=== PATIENT | male | born 1945 ===

== ENCOUNTER 2023-01-23 20:38 | Inpatient (IN) | payer MEDICARE, SELFPAY ==
--- NOTE | ~2023-01-23 | CT_ITS ---
EXAMINATION: CT HEAD WITHOUT CONTRAST CLINICAL INFORMATION: Encephalopathy COMPARISON: None available. TECHNIQUE: Contiguous axial imaging was performed from the skull base to vertex without intravenous administration of contrast. This CT examination was performed using dose optimization techniques as appropriate, variously including the following: *Automated exposure control *Adjustment of mA and/or kV according to patient size (this includes techniques or standardized protocols for targeted exams where dose is matched to indication/reason for exam; i.e. extremities or head) *Use of iterative reconstruction technique DLP: 607 mGy-cm FINDINGS: There is no acute intra-axial, extra-axial bleed, masses or midline shift.. There is no acute infarction in evolution. There is no edema. The lateral ventricles are symmetrical in size but moderately enlarged. There is mild periventricular hypodensity in both cerebral hemispheres suggestive of chronic small vessel ischemic changes. Bone windows reveal no calvarial abnormality. There is no scalp soft tissue abnormality. Paranasal sinuses and mastoid air cells are well-aerated with a small polyp or retention cyst right maxillary sinus. CT/CT head/brain wo IV con IMPRESSION: No acute intracranial process seen.
--- NOTE | ~2023-01-23 | CT_ITS ---
EXAMINATION: CT CHEST WITHOUT CONTRAST CLINICAL INFORMATION: Aspiration pneumonia COMPARISON: None available. TECHNIQUE: Multidetector volumetric CT imaging of the chest was done. Axial MIP volume rendering provided. Sagittal and coronal reformatted images were obtained. This CT examination was performed using dose optimization techniques as appropriate, variously including the following: *Automated exposure control *Adjustment of mA and/or kV according to patient size (this includes techniques or standardized protocols for targeted exams where dose is matched to indication/reason for exam; i.e. extremities or head) *Use of iterative reconstruction technique DLP: 295 mGy-cm FINDINGS: Breathing motion does limit study. LUNGS: Marked paraseptal and centrilobular emphysematous changes of lungs. Associated bronchial wall thickening without bronchiectasis of the central bronchi. No focal dense consolidation. Lung nodules: No suspicious lung nodule. MEDIASTINUM: No mediastinal mass or significant lymphadenopathy. Heart size is normal. No pericardial effusion. Vascular cast stations of aorta and great vessels without aneurysm. CORONARY ARTERY CALCIFICATION: Moderate volume of coronary calcification. PLEURA: There is no pleural effusion. No pleural mass or thickening. AXILLA: No lymphadenopathy. UPPER ABDOMEN: No abnormality visualized portions of liver and spleen or pancreas. Small cortical cyst upper pole right kidney. No follow-up imaging is recommended for simple renal cyst.. Degenerative glands are normal. OSSEOUS STRUCTURES: Multilevel degenerative spondylosis spine. CT/CT chest wo IV con IMPRESSION: 1. Marked emphysematous changes of lungs. 2. No acute abnormality of chest. Fleischner guidelines were followed.
[2023-01-23 18:00] VITALS: BP 127/60; PULSE 71; RESP 17; TEMP 36; O2SAT 100
[2023-01-23 21:51] VITALS: BMI 22.1
[2023-01-23] MEDS: risperiDONE 0.5 MG TABLET 1.5 MG PO (22:37)
[2023-01-23] MEDS: traZODone HCL 50 MG TABLET PO (22:37)
[2023-01-23] MEDS: Enoxaparin Sodium 40 MG/0.4 ML SYRINGE SUBCUT (22:38)
[2023-01-23] MEDS: OLANZapine 2.5 MG TABLET PO (23:16)
[2023-01-24] MEDS: traZODone HCL 50 MG TABLET PO ×2 (00:42→20:35)
[2023-01-24] MEDS: hydrOXYzine HCL 25 MG TABLET PO ×2 (00:42→20:35)
--- NOTE | 2023-01-24 02:53 | PC.ADMIT ---
Admitted these 77 yrs. old male pt. per stretcher at 21:15h accompanied by ambulance staff w/ the Sec 12-B from [facility] presenting due to a history of dementia w/ more recent onset of behavioral disturbances. He presented w/ increased aggression from [facility]. He has a history of poor impulse control. According to the Nurse to Nurse report pt had soft wrist restraints in [facility]. Upon admission, Pt is alert and oriented to self only, very confused and disorganized and no insights to situation. Patient put to bed comfortably, skin check done w/ multiple bruises on upper extremity and slightly reddened buttocks.No edema noted. No c/o SOB. Abdomen soft and non tender w/ +bowel sounds in 4 quadrants. Pt has no c/o pain. Unable to assess fully during the admission process, Pt is not answering questions and unable to understand due to confusion. Pt. has hx of Acute Urinary retention, Bradycardia, CAD, HTN, Hypoglycemia, BPH. Pt became agitated and aggressive during incontinent care. Pt. given snacks scheduled HS meds and also given PRN Trazodone, Zyprexa and Atarax w/ effect. Pt unable to sign the release of information due to confusion. Marcia Martin notified of admission w/ orders made. Pt. placed on q 5 mins checks per hospital policy. We'll continue to monitor patient.
[2023-01-24 08:05] VITALS: BP 166/83; PULSE 83; RESP 16; TEMP 36.2; O2SAT 94
[2023-01-24 08:34] LABS: Estimated Average Glucose 100 mg/dL; Hemoglobin A1c % 5.1 % (<6.0)
[2023-01-24 08:49] LABS: Cholesterol 190 mg/dL (<200); HDL Cholesterol 42 mg/dL (>40); LDL Cholesterol Calculated 129 mg/dL (<100); Magnesium 1.9 mg/dL (1.6-2.6); Triglycerides 96 mg/dL (<150)
[2023-01-24 09:05] LABS: Free T4 (Free Thyroxine) 1.12 ng/dL (0.71-1.85); Thyroid Stimulating Hormone 1.52 uIU/mL (0.32-4.0)
[2023-01-24] MEDS: Aspirin 81 MG TAB.CHEW PO (09:16)
[2023-01-24] MEDS: risperiDONE 1 MG TABLET PO (09:16)
[2023-01-24] MEDS: Divalproex Sodium 250 MG TABLET.DR PO ×2 (09:16→20:34)
[2023-01-24] MEDS: Tamsulosin HCL 0.4 MG CAPSULE PO (09:16)
[2023-01-24] MEDS: traZODone HCL 25 MG HALFTAB PO (09:16)
[2023-01-24 09:29] LABS: Folate 5.6 ng/mL (> or = 4.0); Vitamin B12 611 pg/mL (200-900)
--- NOTE | 2023-01-24 11:11 | HO.PM.IMCN ---
History of Present Illness Data of Consult Service Date: 01/24/23 Primary Care Provider: Unknown Physician HPI Reason for consult: Admission H&P Pt is a 77-year-old male with a PMH significant for?HTN, CAD, BPH, urinary retention, and dementia with behavioral disturbances who is admitted to [facility] from assisted living facility for aggressive behavior. Patient diagnosed with dementia in 2014 which has advanced significantly in the last year, leading to patient's admission to [facility] unit earlier this year due to increasing wandering behavior. Medical consult for admission H&P. Patient is somnolent and not arousable at time of interview. Review of records shows that patient has been recently aggressive towards staff at his facility and in the hospital. Patient apparently becomes agitated when approached from behind or to the side. Patient had thrown a chair at staff at his previous facility. Here, patient had a large bowel movement and threw feces at the staff. Labs reviewed from ED admission, largely unremarkable. Review of Systems Review of Systems: Unable to obtain due to patient's mentation PMFSH Social History Household Members: None Housing: Detention Do you presently have visiting nurse or other home services: No Unable to assess alcohol history related to: Unable to respond Patient Tobacco Use Status: Former Tobacco user Tobacco use type: Cigarette Smoked in Last 30 Days: No Use of substances other than those prescribed or required for medical reasons: No Currently Displaying Signs/Symptoms of Drug Intoxication Withdrawal: No Advance Directives: No Advance Directives Information Provided: No Recently lost weight without trying: Unsure Nutrition Risks: No Nutritional Risk Poor oral hygiene: No service: Yes Meds Allergies Allergy/AdvReac Type Severity Reaction Status Date / Time [id number] Reductase Allergy Unknown Unknown Verified 01/23/23 16:57 Inhibitor Active Medications: Current Medications Acetaminophen (Acetaminophen 325 Mg Tablet) 650 mg PO Q6H PRN PRN Reason: Headache/Pain Mild Scale (1-3) Al Hydroxide/Mg Hydroxide (Magnesium Hydrox/Alum Hydrox 30 Ml Oral.Susp) 30 ml PO Q6H PRN PRN Reason: Heartburn/Nausea Aspirin (Aspirin 81 Mg Tab.Chew) 81 mg PO DAILY [facility] Last Admin: 01/24/23 09:16 Dose: 81 mg Clonazepam (Clonazepam 0.125 Mg Tab.Rapdis) 0.25 mg PO BEDTIME [facility] Divalproex Sodium (Divalproex Sodium 250 Mg Tablet.Dr) 250 mg PO BID [facility] Last Admin: 01/24/23 09:16 Dose: 250 mg Enoxaparin Sodium (Enoxaparin Sodium 40 Mg/0.4 Ml Syringe) 40 mg SUBCUT Q24H [facility] Last Admin: 01/23/23 22:38 Dose: 40 mg Hydroxyzine HCl (Hydroxyzine Hcl 25 Mg Tablet) 25 mg PO Q6H PRN PRN Reason: Anxiety Last Admin: 01/24/23 00:42 Dose: 25 mg Magnesium Hydroxide (Milk Of Magnesia 30 Ml Oral.Susp) 30 ml PO DAILY PRN PRN Reason: Constipation Melatonin (Melatonin 3 Mg Tablet) 6 mg PO BEDTIME [facility] Olanzapine (Olanzapine 2.5 Mg Tablet) 2.5 mg PO Q6H PRN PRN Reason: agitation Last Admin: 01/23/23 23:16 Dose: 2.5 mg Risperidone (Risperidone 1 Mg Tablet) 1 mg PO DAILY [facility] Last Admin: 01/24/23 09:16 Dose: 1 mg Risperidone (Risperidone 0.5 Mg Tablet) 1.5 mg PO BEDTIME [facility] Last Admin: 01/23/23 22:37 Dose: 1.5 mg Tamsulosin HCl (Tamsulosin Hcl 0.4 Mg Capsule) 0.4 mg PO DAILY [facility] Last Admin: 01/24/23 09:16 Dose: 0.4 mg Trazodone HCl (Trazodone Hcl 50 Mg Tablet) 50 mg PO BEDTIME MRX1 PRN PRN Reason: Insomnia Last Admin: 01/24/23 00:42 Dose: 50 mg Trazodone HCl (Trazodone Hcl 25 Mg Halftab) 25 mg PO DAILY [facility] Last Admin: 01/24/23 09:16 Dose: 25 mg Trazodone HCl (Trazodone Hcl 50 Mg Tablet) 50 mg PO BEDTIME [facility] Last Admin: 01/23/23 22:37 Dose: 50 mg Home Medications Medication Instructions Recorded Confirmed Last Taken Type acetaminophen 325 mg tablet 650 mg PO Q6H PRN Pain, Mild 01/24/23 01/24/23 01/22/23 13:28 History aspirin 81 mg tablet 81 mg PO DAILY 01/24/23 01/24/23 01/23/23 12:16 History clonazepam 0.5 mg tablet 0.25 mg PO BEDTIME 01/24/23 01/24/23 01/22/23 20:13 History divalproex 250 mg tablet,delayed 250 mg PO BID 01/24/23 01/24/23 01/23/23 12:18 History release enoxaparin 40 mg/0.4 mL 40 mg subcut DAILY 01/24/23 01/24/23 01/23/23 12:18 History subcutaneous syringe melatonin 3 mg tablet 6 mg PO BEDTIME 01/24/23 01/24/23 01/22/23 20:15 History olanzapine 2.5 mg tablet 2.5 mg PO DAILY PRN Agitation 01/24/23 01/24/23 01/20/23 23:16 History risperidone 1 mg tablet 1 mg PO QAM 01/24/23 01/24/23 01/23/23 12:18 History risperidone 1 mg tablet 1.5 mg PO BEDTIME 01/24/23 01/24/23 01/22/23 20:14 History tamsulosin 0.4 mg capsule 0.4 mg PO DAILY 01/24/23 01/24/23 01/23/23 12:16 History trazodone 50 mg tablet 25 mg PO QAM 01/24/23 01/24/23 01/23/23 12:18 History trazodone 50 mg tablet 50 mg PO BEDTIME 01/24/23 01/24/23 01/22/23 20:16 History Physical Exam Vital Signs and Narrative: Vital Signs: Last Vital Signs Temp 97.2 F 01/24/23 08:05 Pulse 83 01/24/23 08:05 Resp 16 01/24/23 08:05 BP 166/83 H 01/24/23 08:05 Pulse Ox 94 01/24/23 08:05 O2 Del Method Room Air 01/24/23 08:05 BMI result Body Mass Index 22.1 General: Pt sleeping comfortably, not arousable, no acute distress Resp: CTA bilaterally CVS: S1, S2, RRR GI: +BS, NT, no distention Skin: No rash Neuro: Cranial nerves II-XII grossly intact bilaterally. Motor grossly intact bilaterally Extremities: No edema Results Labs Labs: Laboratory Results - last 24 hr 01/24/23 01/24/23 01/24/23 08:07 08:07 08:07 Estimat Average Glucose 100 Hemoglobin A1c % 5.1 Magnesium 1.9 Triglycerides 96 Cholesterol 190 LDL Cholesterol, Calc 129 H HDL Cholesterol 42 Vitamin B12 611 Folate 5.6 TSH 1.52 Free T4 1.12 Assessment and Plan (1) Routine history and physical examination of adult: Status: Acute Plan Pt is a 77-year-old male with a PMH significant for?HTN, CAD, BPH, urinary retention, and dementia with behavioral disturbances who is admitted to [facility] from assisted living facility for aggressive behavior. Patient diagnosed with dementia in 2014 which has advanced significantly in the last year, leading to patient's admission to [facility] earlier this year due to increasing wandering behavior. Medical consult for admission H&P. Patient is somnolent and not arousable at time of interview. Mood disorder Plan as per psychiatry CAD Continue aspirin BPH Continue tansulosin Hx of urinary retention Has had intermittent Keith catheters, urology consults\ Pt incontinent, has urinated since admission per nursing Bladder scan as necessary Monitor bladder habits Thank you for allowing us to participate in the care of this patient. Signing off at this time. Please let us know if there are any acute complaints or questions. Time Spent With Patient Time: Total time managing care of this patient today ____ minutes.
--- NOTE | 2023-01-24 12:33 | HO.PSYADMNOT ---
HPI Date of Service: 01/24/23 Chief Complaint: Dementia w behavioral disturbances Sources of Information: patient interviewed, chart reviewed and crisis/core team assessment reviewed HPI Subjective Notes: Alva Warning, Conditional Voluntary and Section 12B Narrative: The patient is a 77-year-old male, for the last 53 years, father of 1 adult son, resident of memory care unit, referred to [facility] for exacerbation of disorganized behavior and agitation. The patient carries a diagnosis of dementia since 2014 and recently he had being transferred to the memory unit due to the progression of his dementia. The patient had been admitted before to the hospital due to similar presentations but he was returned back after improving his behavior in the unit. The present episode started a few weeks ago with worsening of his memory, increased agitation and disorganized behavior. He was rushed to the emergency room and admitted into the hospital since the patient had a UTI and needed to have a Keith catheter. The infection was resolved and he was able to urinate by himself without the need of the Keith. Even though, he was assessed by crisis and since he remains disorganized was transferring to this facility for psychiatric stabilization. Apparently, the patient had been several times on restraints. On admission, the patient is a very poor historian, he was unable to provide details of the previous admission. He realized that he is in a hospital, he adamantly denies auditory or visual hallucinations and he is able to contract for safety. Even though, it is unlikely that he understood 100% Alva warning. We will try to gather collateral information from her who is the primary director day care center. Past Psychiatric History: No prior psychiatric history as per 's report. 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 He had been for the last 55 years with his and he has a son. He had been resident of a memory care unit for the last months. Substance History: Denies Trauma History: Denies Diagnostics Vital Signs (24Hr): Vital Signs - 24 hr 01/23/23 18:00 01/24/23 08:05 Temperature 96.8 F 97.2 F Pulse Rate 71 83 Respiratory Rate 17 16 Blood Pressure 127/60 166/83 H Pulse Oximetry 100 94 Oxygen Delivery Method Room Air Room Air BMI result Body Mass Index 22.1 Labs Labs: Laboratory Results - last 48 hr 01/24/23 01/24/23 01/24/23 08:07 08:07 08:07 Estimat Average Glucose 100 Hemoglobin A1c % 5.1 Magnesium 1.9 Triglycerides 96 Cholesterol 190 LDL Cholesterol, Calc 129 H HDL Cholesterol 42 Vitamin B12 611 Folate 5.6 TSH 1.52 Free T4 1.12 Meds/Allergies Meds Home Medications Medication Instructions Recorded Confirmed Type acetaminophen 325 mg tablet 650 mg PO Q6H PRN Pain, Mild 01/24/23 01/24/23 History aspirin 81 mg tablet 81 mg PO DAILY 01/24/23 01/24/23 History clonazepam 0.5 mg tablet 0.25 mg PO BEDTIME 01/24/23 01/24/23 History divalproex 250 mg tablet,delayed 250 mg PO BID 01/24/23 01/24/23 History release enoxaparin 40 mg/0.4 mL 40 mg subcut DAILY 01/24/23 01/24/23 History subcutaneous syringe melatonin 3 mg tablet 6 mg PO BEDTIME 01/24/23 01/24/23 History olanzapine 2.5 mg tablet 2.5 mg PO DAILY PRN Agitation 01/24/23 01/24/23 History risperidone 1 mg tablet 1 mg PO QAM 01/24/23 01/24/23 History risperidone 1 mg tablet 1.5 mg PO BEDTIME 01/24/23 01/24/23 History tamsulosin 0.4 mg capsule 0.4 mg PO DAILY 01/24/23 01/24/23 History trazodone 50 mg tablet 25 mg PO QAM 01/24/23 01/24/23 History trazodone 50 mg tablet 50 mg PO BEDTIME 01/24/23 01/24/23 History Allergies Allergies Allergy/AdvReac Type Severity Reaction Status Date / Time [id number] Reductase Allergy Unknown Unknown Verified 01/23/23 16:57 Inhibitor Mental Status Exam Mental Status Exam Patient Appearance: Appropriate and Unkempt Patient Orientation: Person Level of Consciousness: Awake Patient Behavior: Guarded and Passive Mood Description: Suspicious and Withdrawn Affect Description: Constricted Patient Cognition Impaired: Yes Ability to Follow Directions: Good Speech Pattern: Clear and Difficulty Finding Words Hallucinations: None Delusions: Not Present Thought Process: Distracted and Evasive Thought Content: positive for [place] and positive for Poverty of Content Judgement: Fair Assessment & Plan Assessment & Plan (1) Dementia: Status: Acute Code(s): F03.90 - Unspecified dementia, unspecified severity, without behavioral disturbance, psychotic disturbance, mood disturbance, and anxiety (2) Delirium: Status: Acute Code(s): R41.0 - Disorientation, unspecified Plan The patient is an elderly male, , with a past history of dementia who was referred from another hospital for exacerbation of behavioral disturbances in the context of a UTI. The patient has been diagnosed with dementia for several years and his condition has worsen it. At this moment, the patient is a very poor historian unable to provide a coherent history. Plan 1. Gather collateral information. We will try to contact his . 2. Continue with psychotropics. 3. Continue with medical workout. 4. Follow-up with results. 4. 5 minutes checks for the next 24 hours. Patient educated on: diagnosis and therapeutic strategies Informed Consent: does not understand Reason for continued inpatient stay Substantial Risk for: harm to others, inability to function, rapid decompensation and med/psych decompensation Statement Statement: I have reviewed the history and physical and performed a pertinent examination on my patient. No changes have occurred unless specified. If the History and Physical was not performed prior to admission, the Hospitalist's service will be consulted for completing the admission physical. Time Spent With Patient Time: Total time managing care of this patient today _45___ minutes.
[2023-01-24 18:00] VITALS: BP 118/68; PULSE 72; RESP 16; TEMP 36.1; O2SAT 97
[2023-01-24] MEDS: risperiDONE 0.5 MG TABLET 1.5 MG PO (20:34)
[2023-01-24] MEDS: Melatonin 3 MG TABLET 6 MG PO (20:34)
[2023-01-24] MEDS: Acetaminophen 325 MG TABLET 650 MG PO (20:35)
[2023-01-24] MEDS: Enoxaparin Sodium 40 MG/0.4 ML SYRINGE SUBCUT (23:09)
[2023-01-25 07:00] VITALS: BMI 21.1
[2023-01-25 08:00] VITALS: BP 148/63; PULSE 68; RESP 18; TEMP 36.6; O2SAT 97
[2023-01-25] MEDS: Divalproex Sodium 250 MG TABLET.DR PO (08:28)
[2023-01-25] MEDS: Tamsulosin HCL 0.4 MG CAPSULE PO (08:28)
[2023-01-25] MEDS: traZODone HCL 25 MG HALFTAB PO (08:28)
[2023-01-25] MEDS: risperiDONE 1 MG TABLET PO (08:28)
[2023-01-25] MEDS: Aspirin 81 MG TAB.CHEW PO (08:28)
--- NOTE | 2023-01-25 11:02 | P.PNPSI_ITS ---
Subjective Subjective Date of Service: 01/25/23 Reason For Visit: Dementia w behavioral disturbances Subjective Notes: Section 12B Interim History: The nursing staff reported the patient had been sleeping yesterday nearly all day long. He had been very confused and irritable with care. He receive Atarax last night at helping very well. He slept 7 nights overnight. On interview the patient was sleepy, very difficult to wake up and he looks very confused. Mental Status Exam Mental Status Exam Patient Appearance: Appropriate Patient Orientation: Person and Situation Level of Consciousness: Awake and Appropriate Patient Behavior: Guarded and Passive Mood Description: Withdrawn Affect Description: Blunted Patient Cognition Impaired: Yes Ability to Follow Directions: Fair Speech Pattern: Clear Hallucinations: None Delusions: Not Present Thought Process: Illogical and Evasive Thought Content: positive for [place] and positive for Poverty of Content Judgement: Poor Diagnostics Vital Signs (24Hr): Vital Signs - 24 hr 01/24/23 18:00 01/25/23 08:00 Temperature 96.9 F 97.8 F Pulse Rate 72 68 Respiratory Rate 16 18 Blood Pressure 118/68 148/63 H Pulse Oximetry 97 97 Oxygen Delivery Method Room Air Room Air BMI result Body Mass Index 22.1 Labs Labs: Laboratory Results - last 48 hr 01/24/23 01/24/23 01/24/23 08:07 08:07 08:07 Estimat Average Glucose 100 Hemoglobin A1c % 5.1 Magnesium 1.9 Triglycerides 96 Cholesterol 190 LDL Cholesterol, Calc 129 H HDL Cholesterol 42 Vitamin B12 611 Folate 5.6 TSH 1.52 Free T4 1.12 Medications Medications Current Medications Acetaminophen (Acetaminophen 325 Mg Tablet) 650 mg PO Q6H PRN PRN Reason: Headache/Pain Mild Scale (1-3) Last Admin: 01/24/23 20:35 Dose: 650 mg Al Hydroxide/Mg Hydroxide (Magnesium Hydrox/Alum Hydrox 30 Ml Oral.Susp) 30 ml PO Q6H PRN PRN Reason: Heartburn/Nausea Aspirin (Aspirin 81 Mg Tab.Chew) 81 mg PO DAILY [facility] Last Admin: 01/25/23 08:28 Dose: 81 mg Clonazepam (Clonazepam 0.125 Mg Tab.Rapdis) 0.25 mg PO BEDTIME [facility] Last Admin: 01/24/23 20:34 Dose: 0.25 mg Divalproex Sodium (Divalproex Sodium Sprinkles 125 Mg ) 250 mg PO BID [facility] Last Admin: 01/25/23 08:58 Dose: Not Given Enoxaparin Sodium (Enoxaparin Sodium 40 Mg/0.4 Ml Syringe) 40 mg SUBCUT Q24H [facility] Last Admin: 01/24/23 23:09 Dose: 40 mg Hydroxyzine HCl (Hydroxyzine Hcl 25 Mg Tablet) 25 mg PO Q6H PRN PRN Reason: Anxiety Last Admin: 01/24/23 20:35 Dose: 25 mg Magnesium Hydroxide (Milk Of Magnesia 30 Ml Oral.Susp) 30 ml PO DAILY PRN PRN Reason: Constipation Melatonin (Melatonin 3 Mg Tablet) 6 mg PO BEDTIME [facility] Last Admin: 01/24/23 20:34 Dose: 6 mg Olanzapine (Olanzapine 2.5 Mg Tablet) 2.5 mg PO Q6H PRN PRN Reason: agitation Last Admin: 01/23/23 23:16 Dose: 2.5 mg Risperidone (Risperidone 1 Mg Tablet) 1 mg PO DAILY [facility] Last Admin: 01/25/23 08:28 Dose: 1 mg Risperidone (Risperidone 0.5 Mg Tablet) 1.5 mg PO BEDTIME [facility] Last Admin: 01/24/23 20:34 Dose: 1.5 mg Tamsulosin HCl (Tamsulosin Hcl 0.4 Mg Capsule) 0.4 mg PO DAILY [facility] Last Admin: 01/25/23 08:28 Dose: 0.4 mg Trazodone HCl (Trazodone Hcl 50 Mg Tablet) 50 mg PO BEDTIME MRX1 PRN PRN Reason: Insomnia Last Admin: 01/24/23 00:42 Dose: 50 mg Trazodone HCl (Trazodone Hcl 25 Mg Halftab) 25 mg PO DAILY [facility] Last Admin: 01/25/23 08:28 Dose: 25 mg Trazodone HCl (Trazodone Hcl 50 Mg Tablet) 50 mg PO BEDTIME [facility] Last Admin: 01/24/23 20:35 Dose: 50 mg Allergies Allergies Allergy/AdvReac Type Severity Reaction Status Date / Time [id number]-[id number]-[id number] Reductase Allergy Unknown Unknown Verified 01/23/23 16:57 Inhibitor Assessment & Plan Assessment & Plan (1) Dementia: Status: Acute Code(s): F03.90 - Unspecified dementia, unspecified severity, without behavioral disturbance, psychotic disturbance, mood disturbance, and anxiety (2) Delirium: Status: Acute Code(s): R41.0 - Disorientation, unspecified Plan The patient is an elderly male, , with a past history of dementia who was referred from another hospital for exacerbation of behavioral disturbances in the context of a UTI. The patient has been diagnosed with dementia for several years and his condition has worsen it. At this moment, the patient is a very poor historian unable to provide a coherent history. Plan 1. Gather collateral information. We will try to contact his . 2. Continue with psychotropics. 3. Continue with medical workout. 4. Follow-up with results. 4. 5 minutes checks for the next 24 hours. Reason for continued inpatient stay Substantial Risk for: inability to function, rapid decompensation and med/psych decompensation Time Spent With Patient Time: Total time managing care of this patient today __20__ minutes.
[2023-01-25 20:00] VITALS: BP 152/87; PULSE 85; RESP 20; TEMP 36.4
[2023-01-25] MEDS: Melatonin 3 MG TABLET 6 MG PO (20:21)
[2023-01-25] MEDS: Divalproex Sodium Sprinkles 125 MG CAP.DR.SPR 250 MG PO (20:22)
[2023-01-25] MEDS: risperiDONE 0.5 MG TABLET 1.5 MG PO (20:24)
[2023-01-25] MEDS: traZODone HCL 50 MG TABLET PO ×2 (20:24→23:41)
[2023-01-25] MEDS: Enoxaparin Sodium 40 MG/0.4 ML SYRINGE SUBCUT (21:11)
[2023-01-25] MEDS: OLANZapine 2.5 MG TABLET PO (23:35)
[2023-01-26 08:05] VITALS: BP 140/69; PULSE 62; RESP 16; TEMP 36.4; O2SAT 96
[2023-01-26] MEDS: Aspirin 81 MG TAB.CHEW PO (08:26)
[2023-01-26] MEDS: Tamsulosin HCL 0.4 MG CAPSULE PO (08:26)
[2023-01-26] MEDS: Divalproex Sodium Sprinkles 125 MG CAP.DR.SPR 250 MG PO ×2 (08:26→22:43)
[2023-01-26] MEDS: traZODone HCL 25 MG HALFTAB PO (08:26)
[2023-01-26] MEDS: risperiDONE 1 MG TABLET PO (09:31)
[2023-01-26] MEDS: hydrOXYzine HCL 25 MG TABLET PO ×2 (10:25→22:43)
[2023-01-26] MEDS: OLANZapine 2.5 MG TABLET PO (10:25)
--- NOTE | 2023-01-26 11:34 | HO.PSYCHPN ---
Subjective Subjective Date of Service: 01/26/23 Reason For Visit: Dementia w behavioral disturbances Subjective Notes: Conditional Voluntary (By healthcare proxy) Interim History: The nursing staff reported that yesterday the patient was most of the time sleeping during the day and today in the morning he was combative with care her to 1 of the staff members. The director social reported that the was contacted for healthcare proxy, she wants to move him out of her current facility and going to the facility that she is on. The patient had been very confused and demented and most likely he is on a end-stage dementia. On interview, the patient was confused, sleepy, unable to fully assess his mental status due to over-sedation. Mental Status Exam Mental Status Exam Patient Appearance: Appropriate Patient Orientation: Person Level of Consciousness: Disoriented and Lethargic Patient Behavior: Guarded Mood Description: Withdrawn Affect Description: Blunted Patient Cognition Impaired: Yes Ability to Follow Directions: Fair Speech Pattern: Impoverished Hallucinations: None Delusions: Not Present Thought Process: Illogical, Distracted and Slowed Thinking Thought Content: positive for Shelby and positive for Poverty of Content Judgement: Poor Diagnostics Vital Signs (24Hr): Vital Signs - 24 hr 01/25/23 20:00 01/26/23 08:05 Temperature 97.5 F 97.6 F Pulse Rate 85 62 Respiratory Rate 20 16 Blood Pressure 152/87 H 140/69 H Pulse Oximetry 96 Oxygen Delivery Method Room Air BMI result Body Mass Index 21.1 Medications Medications Current Medications Acetaminophen (Acetaminophen 325 Mg Tablet) 650 mg PO Q6H PRN PRN Reason: Headache/Pain Mild Scale (1-3) Last Admin: 01/24/23 20:35 Dose: 650 mg Al Hydroxide/Mg Hydroxide (Magnesium Hydrox/Alum Hydrox 30 Ml Oral.Susp) 30 ml PO Q6H PRN PRN Reason: Heartburn/Nausea Aspirin (Aspirin 81 Mg Tab.Chew) 81 mg PO DAILY [facility] Last Admin: 01/26/23 08:26 Dose: 81 mg Clonazepam (Clonazepam 0.125 Mg Tab.Rapdis) 0.25 mg PO BEDTIME [facility] Last Admin: 01/25/23 20:25 Dose: 0.25 mg Divalproex Sodium (Divalproex Sodium Sprinkles 125 Mg ) 250 mg PO BID [facility] Last Admin: 01/26/23 08:26 Dose: 250 mg Enoxaparin Sodium (Enoxaparin Sodium 40 Mg/0.4 Ml Syringe) 40 mg SUBCUT Q24H [facility] Last Admin: 01/25/23 21:11 Dose: 40 mg Hydroxyzine HCl (Hydroxyzine Hcl 25 Mg Tablet) 25 mg PO Q6H PRN PRN Reason: Anxiety Last Admin: 01/26/23 10:25 Dose: 25 mg Magnesium Hydroxide (Milk Of Magnesia 30 Ml Oral.Susp) 30 ml PO DAILY PRN PRN Reason: Constipation Melatonin (Melatonin 3 Mg Tablet) 6 mg PO BEDTIME [facility] Last Admin: 01/25/23 20:21 Dose: 6 mg Olanzapine (Olanzapine 2.5 Mg Tablet) 2.5 mg PO Q6H PRN PRN Reason: agitation Last Admin: 01/26/23 10:25 Dose: 2.5 mg Risperidone (Risperidone 1 Mg Tablet) 1 mg PO DAILY [facility] Last Admin: 01/26/23 09:31 Dose: 1 mg Risperidone (Risperidone 0.5 Mg Tablet) 1.5 mg PO BEDTIME [facility] Last Admin: 01/25/23 20:24 Dose: 1.5 mg Tamsulosin HCl (Tamsulosin Hcl 0.4 Mg Capsule) 0.4 mg PO DAILY [facility] Last Admin: 01/26/23 08:26 Dose: 0.4 mg Trazodone HCl (Trazodone Hcl 50 Mg Tablet) 50 mg PO BEDTIME MRX1 PRN PRN Reason: Insomnia Last Admin: 01/25/23 23:41 Dose: 50 mg Trazodone HCl (Trazodone Hcl 25 Mg Halftab) 25 mg PO DAILY [facility] Last Admin: 01/26/23 08:26 Dose: 25 mg Trazodone HCl (Trazodone Hcl 50 Mg Tablet) 50 mg PO BEDTIME [facility] Last Admin: 01/25/23 20:24 Dose: 50 mg Allergies Allergies Allergy/AdvReac Type Severity Reaction Status Date / Time Rmategr-WVQ-LtC Reductase Allergy Unknown Unknown Verified 01/23/23 16:57 Inhibitor Assessment & Plan Assessment & Plan (1) Dementia: Status: Acute Code(s): F03.90 - Unspecified dementia, unspecified severity, without behavioral disturbance, psychotic disturbance, mood disturbance, and anxiety (2) Delirium: Status: Acute Code(s): R41.0 - Disorientation, unspecified Plan The patient is an elderly male, , with a past history of dementia who was referred from another hospital for exacerbation of behavioral disturbances in the context of a UTI. The patient has been diagnosed with dementia for several years and his condition has worsen it. At this moment, the patient is a very poor historian unable to provide a coherent history. Plan 1. Gather collateral information. We will try to contact his . 2. Continue with psychotropics. 3. Continue with medical workout. 4. Follow-up with results. 4. 5 minutes checks for the next 24 hours. Reason for continued inpatient stay Substantial Risk for: inability to function, rapid decompensation and med/psych decompensation Time Spent With Patient Time: Total time managing care of this patient today __20__ minutes.
[2023-01-26] MEDS: OLANZapine 5 MG TABLET PO (14:03)
[2023-01-26] MEDS: OLANZapine ODT 10 MG TAB.RAPDIS TRANSLINGU (16:29)
--- NOTE | 2023-01-26 17:09 | PC.NURSE ---
Pt agitated/combative through out shift, several attempts to redirect with no effect, po Zyprexa 10 mg given with good effect.
[2023-01-26 18:00] VITALS: BP 154/78; PULSE 81; RESP 16; TEMP 36; O2SAT 96
[2023-01-26] MEDS: risperiDONE 0.5 MG TABLET 1.5 MG PO (22:42)
[2023-01-26] MEDS: Melatonin 3 MG TABLET 6 MG PO (22:42)
[2023-01-26] MEDS: Enoxaparin Sodium 40 MG/0.4 ML SYRINGE SUBCUT (22:43)
[2023-01-26] MEDS: traZODone HCL 50 MG TABLET PO (22:43)
[2023-01-27 08:00] VITALS: BP 157/72; PULSE 78; RESP 18; TEMP 36.2; O2SAT 97
[2023-01-27] MEDS: Aspirin 81 MG TAB.CHEW PO (11:19)
[2023-01-27] MEDS: traZODone HCL 25 MG HALFTAB PO (11:19)
[2023-01-27] MEDS: risperiDONE 1 MG TABLET PO (11:19)
[2023-01-27] MEDS: Tamsulosin HCL 0.4 MG CAPSULE PO (11:20)
[2023-01-27] MEDS: Divalproex Sodium Sprinkles 125 MG CAP.DR.SPR 250 MG PO ×2 (11:20→19:44)
--- NOTE | 2023-01-27 17:46 | HO.PSYCHPN ---
Subjective Subjective Date of Service: 01/27/23 Reason For Visit: Dementia w behavioral disturbances Interim History: met with patient. Discussed with Nursing. Agitation last night requiring olanzapine. Has been sleeping most of the morning in context same. Need lots of assistance and cognition consistent with establish dementia. Did attempt to wake patient, but sleeping soundly and did not engage. Medication Compliance: Yes Side effects from medications: No Attending Groups: No Review of Systems Acute medical concerns: No Review of Systems Review of Systems Yes Unobtainable due to mental status Mental Status Exam Mental Status Exam Narrative: Sleeping soundly. Did not engage when attempted to wake. Diagnostics Vital Signs (24Hr): Vital Signs - 24 hr 01/26/23 18:00 01/27/23 08:00 Temperature 96.8 F 97.1 F Pulse Rate 81 78 Respiratory Rate 16 18 Blood Pressure 154/78 H 157/72 H Pulse Oximetry 96 97 Oxygen Delivery Method Room Air Room Air BMI result Body Mass Index 21.1 Medications Medications Current Medications Acetaminophen (Acetaminophen 325 Mg Tablet) 650 mg PO Q6H PRN PRN Reason: Headache/Pain Mild Scale (1-3) Last Admin: 01/24/23 20:35 Dose: 650 mg Al Hydroxide/Mg Hydroxide (Magnesium Hydrox/Alum Hydrox 30 Ml Oral.Susp) 30 ml PO Q6H PRN PRN Reason: Heartburn/Nausea Aspirin (Aspirin 81 Mg Tab.Chew) 81 mg PO DAILY [facility] Last Admin: 01/27/23 11:19 Dose: 81 mg Clonazepam (Clonazepam 0.125 Mg Tab.Rapdis) 0.25 mg PO BEDTIME [facility] Last Admin: 01/26/23 22:43 Dose: 0.25 mg Divalproex Sodium (Divalproex Sodium Sprinkles 125 Mg Nathan.) 250 mg PO BID [facility] Last Admin: 01/27/23 11:20 Dose: 250 mg Enoxaparin Sodium (Enoxaparin Sodium 40 Mg/0.4 Ml Syringe) 40 mg SUBCUT Q24H [facility] Last Admin: 01/26/23 22:43 Dose: 40 mg Hydroxyzine HCl (Hydroxyzine Hcl 25 Mg Tablet) 25 mg PO Q6H PRN PRN Reason: Anxiety Last Admin: 01/26/23 22:43 Dose: 25 mg Magnesium Hydroxide (Milk Of Magnesia 30 Ml Oral.Susp) 30 ml PO DAILY PRN PRN Reason: Constipation Melatonin (Melatonin 3 Mg Tablet) 6 mg PO BEDTIME [facility] Last Admin: 01/26/23 22:42 Dose: 6 mg Olanzapine (Olanzapine 2.5 Mg Tablet) 2.5 mg PO Q6H PRN PRN Reason: agitation Last Admin: 01/26/23 10:25 Dose: 2.5 mg Risperidone (Risperidone 1 Mg Tablet) 1 mg PO DAILY [facility] Last Admin: 01/27/23 11:19 Dose: 1 mg Risperidone (Risperidone 0.5 Mg Tablet) 1.5 mg PO BEDTIME [facility] Last Admin: 01/26/23 22:42 Dose: 1.5 mg Tamsulosin HCl (Tamsulosin Hcl 0.4 Mg Capsule) 0.4 mg PO DAILY [facility] Last Admin: 01/27/23 11:20 Dose: 0.4 mg Trazodone HCl (Trazodone Hcl 50 Mg Tablet) 50 mg PO BEDTIME MRX1 PRN PRN Reason: Insomnia Last Admin: 01/25/23 23:41 Dose: 50 mg Trazodone HCl (Trazodone Hcl 25 Mg Halftab) 25 mg PO DAILY [facility] Last Admin: 01/27/23 11:19 Dose: 25 mg Trazodone HCl (Trazodone Hcl 50 Mg Tablet) 50 mg PO BEDTIME [facility] Last Admin: 01/26/23 22:43 Dose: 50 mg Allergies Allergies Allergy/AdvReac Type Severity Reaction Status Date / Time [id number]-[id number]-NdT Reductase Allergy Unknown Unknown Verified 01/23/23 16:57 Inhibitor Assessment & Plan Assessment & Plan (1) Dementia: Status: Acute Code(s): F03.90 - Unspecified dementia, unspecified severity, without behavioral disturbance, psychotic disturbance, mood disturbance, and anxiety (2) Delirium: Status: Acute Code(s): R41.0 - Disorientation, unspecified Plan The patient is an elderly male, , with a past history of dementia who was referred from another hospital for exacerbation of behavioral disturbances in the context of a UTI. The patient has been diagnosed with dementia for several years and his condition has worsen it. At this moment, the patient is a very poor historian unable to provide a coherent history. Plan 1. Gather collateral information. We will try to contact his . 2. Continue with psychotropics. 3. Continue with medical workout. 4. Follow-up with results. 4. 5 minutes checks for the next 24 hours. 01/27/2023: No changes Reason for continued inpatient stay Substantial Risk for: inability to function Time Spent With Patient Time: Total time managing care of this patient today ____ minutes.
[2023-01-27] MEDS: OLANZapine 2.5 MG TABLET PO (17:50)
[2023-01-27 18:00] VITALS: BP 138/67; PULSE 73; RESP 20; TEMP 37.1; O2SAT 98
[2023-01-27] MEDS: hydrOXYzine HCL 25 MG TABLET PO (18:59)
[2023-01-27] MEDS: Enoxaparin Sodium 40 MG/0.4 ML SYRINGE SUBCUT (19:42)
[2023-01-27] MEDS: risperiDONE 0.5 MG TABLET 1.5 MG PO (19:43)
[2023-01-27] MEDS: Melatonin 3 MG TABLET 6 MG PO (19:43)
[2023-01-27] MEDS: traZODone HCL 50 MG TABLET PO ×2 (19:44→23:34)
[2023-01-27] MEDS: Acetaminophen 325 MG TABLET 650 MG PO (23:34)
[2023-01-28 07:45] VITALS: BP 139/74; PULSE 82; RESP 18; TEMP 36.6; O2SAT 96
[2023-01-28] MEDS: Aspirin 81 MG TAB.CHEW PO (07:48)
[2023-01-28] MEDS: traZODone HCL 25 MG HALFTAB PO (07:49)
[2023-01-28] MEDS: risperiDONE 1 MG TABLET PO (07:50)
[2023-01-28] MEDS: Divalproex Sodium Sprinkles 125 MG CAP.DR.SPR 250 MG PO ×2 (07:50→19:58)
[2023-01-28] MEDS: Tamsulosin HCL 0.4 MG CAPSULE PO (07:55)
[2023-01-28] MEDS: hydrOXYzine HCL 25 MG TABLET PO ×2 (09:38→15:16)
[2023-01-28] MEDS: OLANZapine 2.5 MG TABLET PO ×2 (09:38→15:17)
--- NOTE | 2023-01-28 12:16 | HO.PSYCHPN ---
Subjective Subjective Date of Service: 01/28/23 Reason For Visit: Dementia w behavioral disturbances Interim History: Met with patient. Discussed with Nursing. Chart reviewed. And alert today. It in Zeinab chair in day area. Pleasant with song writer. Cognition consistent with established dementia, for example stated he was out shopping for the day. Has been irritable with staff at times. Does well with p.r.n. medications when agitated. Medication Compliance: Yes Side effects from medications: No Attending Groups: No Review of Systems Acute medical concerns: No Review of Systems Review of Systems nothing acute Mental Status Exam Mental Status Exam Narrative: in Zeinab chair. Hospital clothing. Self-care fair. Alert. Not oriented. Pleasant. No evidence of depression SI or HI. No overt psychosis noted. Cognition consistent with establish dementia. Diagnostics Vital Signs (24Hr): Vital Signs - 24 hr 01/27/23 18:00 01/28/23 07:45 Temperature 98.7 F 97.9 F Pulse Rate 73 82 Respiratory Rate 20 18 Blood Pressure 138/67 139/74 Pulse Oximetry 98 96 Oxygen Delivery Method Room Air Room Air BMI result Body Mass Index 21.1 Medications Medications Current Medications Acetaminophen (Acetaminophen 325 Mg Tablet) 650 mg PO Q6H PRN PRN Reason: Headache/Pain Mild Scale (1-3) Last Admin: 01/27/23 23:34 Dose: 650 mg Al Hydroxide/Mg Hydroxide (Magnesium Hydrox/Alum Hydrox 30 Ml Oral.Susp) 30 ml PO Q6H PRN PRN Reason: Heartburn/Nausea Aspirin (Aspirin 81 Mg Tab.Chew) 81 mg PO DAILY [facility] Last Admin: 01/28/23 07:48 Dose: 81 mg Clonazepam (Clonazepam 0.125 Mg Tab.Rapdis) 0.25 mg PO BEDTIME [facility] Last Admin: 01/27/23 19:43 Dose: 0.25 mg Divalproex Sodium (Divalproex Sodium Sprinkles 125 Mg ) 250 mg PO BID [facility] Last Admin: 01/28/23 07:50 Dose: 250 mg Enoxaparin Sodium (Enoxaparin Sodium 40 Mg/0.4 Ml Syringe) 40 mg SUBCUT Q24H [facility] Last Admin: 01/27/23 19:42 Dose: 40 mg Hydroxyzine HCl (Hydroxyzine Hcl 25 Mg Tablet) 25 mg PO Q6H PRN PRN Reason: Anxiety Last Admin: 01/28/23 09:38 Dose: 25 mg Magnesium Hydroxide (Milk Of Magnesia 30 Ml Oral.Susp) 30 ml PO DAILY PRN PRN Reason: Constipation Melatonin (Melatonin 3 Mg Tablet) 6 mg PO BEDTIME [facility] Last Admin: 01/27/23 19:43 Dose: 6 mg Olanzapine (Olanzapine 2.5 Mg Tablet) 2.5 mg PO Q6H PRN PRN Reason: agitation Last Admin: 01/28/23 09:38 Dose: 2.5 mg Risperidone (Risperidone 1 Mg Tablet) 1 mg PO DAILY [facility] Last Admin: 01/28/23 07:50 Dose: 1 mg Risperidone (Risperidone 0.5 Mg Tablet) 1.5 mg PO BEDTIME [facility] Last Admin: 01/27/23 19:43 Dose: 1.5 mg Tamsulosin HCl (Tamsulosin Hcl 0.4 Mg Capsule) 0.4 mg PO DAILY [facility] Last Admin: 01/28/23 07:55 Dose: 0.4 mg Trazodone HCl (Trazodone Hcl 50 Mg Tablet) 50 mg PO BEDTIME MRX1 PRN PRN Reason: Insomnia Last Admin: 01/27/23 23:34 Dose: 50 mg Trazodone HCl (Trazodone Hcl 25 Mg Halftab) 25 mg PO DAILY [facility] Last Admin: 01/28/23 07:49 Dose: 25 mg Trazodone HCl (Trazodone Hcl 50 Mg Tablet) 50 mg PO BEDTIME [facility] Last Admin: 01/27/23 19:44 Dose: 50 mg Allergies Allergies Allergy/AdvReac Type Severity Reaction Status Date / Time Aleiytq-WTN-HjI Reductase Allergy Unknown Unknown Verified 01/23/23 16:57 Inhibitor Assessment & Plan Assessment & Plan (1) Dementia: Status: Acute Code(s): F03.90 - Unspecified dementia, unspecified severity, without behavioral disturbance, psychotic disturbance, mood disturbance, and anxiety (2) Delirium: Status: Acute Code(s): R41.0 - Disorientation, unspecified Plan The patient is an elderly male, , with a past history of dementia who was referred from another hospital for exacerbation of behavioral disturbances in the context of a UTI. The patient has been diagnosed with dementia for several years and his condition has worsen it. At this moment, the patient is a very poor historian unable to provide a coherent history. Plan 1. Gather collateral information. We will try to contact his . 2. Continue with psychotropics. 3. Continue with medical workout. 4. Follow-up with results. 4. 5 minutes checks for the next 24 hours. 01/28/2023: No changes Reason for continued inpatient stay Substantial Risk for: inability to function Time Spent With Patient Time: Total time managing care of this patient today ____ minutes.
[2023-01-28 18:00] VITALS: BP 128/60; PULSE 71; RESP 16; TEMP 36.4; O2SAT 95
[2023-01-28] MEDS: traZODone HCL 50 MG TABLET PO (19:58)
[2023-01-28] MEDS: Melatonin 3 MG TABLET 6 MG PO (19:59)
[2023-01-28] MEDS: risperiDONE 0.5 MG TABLET 1.5 MG PO (19:59)
[2023-01-28] MEDS: OLANZapine 5 MG TABLET PO (19:59)
[2023-01-28] MEDS: Enoxaparin Sodium 40 MG/0.4 ML SYRINGE SUBCUT (21:09)
[2023-01-29 06:32] VITALS: PULSE 84; RESP 20; TEMP 36.1; O2SAT 94
--- NOTE | 2023-01-29 06:43 | PC.NURSE ---
somnolent/sedated. pt is well under the influences of medications administered earlier in the night for agitation/combativeness. pt moans to noxious stimulation. pt has developed upper resp congestion which briefly clears with coughing. hob has been elevated 30-35 degrees. sao2 checked 94%. no obvious air hunger. the possibility of aspiration exists. pt will need to be kept npo and have speech evaluation. he is afebrile now. apical hr 84 bpm.
[2023-01-29 06:56] VITALS: BP 129/68
[2023-01-29 13:19] LABS: Basophils Percent Auto 0.1 % (0-2); Eosinophils Percent Auto 0.1 % (0-4); Hematocrit 46.6 % (42.0-52.0); Imm Gran Abs Auto 0.06 X10*3/uL (0.00-0.03); Imm Gran Pct Auto 0.4 % (0.0-0.4); Lymphocytes Absolute Auto 0.4 X10*3/uL (1.2-4.9); MANUAL DIFF FLAG SCAN; Mean Corpuscular HGB Conc 34.3 g/dl (31.0-36.0); Mean Corpuscular Hemoglobin 30.9 pg (27.0-33.0); Mean Platelet Volume 9.4 fL (9.4-12.4); Monocytes Percent Auto 14.2 % (2-11); Neutrophils Absolute Auto 11.2 x10*3/uL (2.0-8.3); Neutrophils Percent Auto 82.2 % (45-73); Platelet Count 166 X10*3/uL (160-400); Red Blood Count 5.18 X10*6/uL (4.60-5.80); Red Cell Distribution Width 13.4 % (11.0-16.0); SCAN SMEAR FLAG 1; White Blood Count 13.7 X10*3/uL (4.8-10.8)
[2023-01-29 13:28] LABS: Alanine Aminotransferase 16 U/L (0-40); Albumin Level 4.2 g/dL (3.5-5.0); Alkaline Phosphatase 71 U/L (39-117); Anion Gap 12 (12-20); Aspartate Amino Transferase 17 U/L (5-37); Bilirubin Total 0.9 mg/dL (0.0-1.0); Blood Urea Nitrogen 23 mg/dL (9-16); Calcium 10.5 mg/dL (8.4-10.2); Carbon Dioxide 28 mmol/L (22-29); Chloride 108 mmol/L (96-108); Creatinine Clr Calc Pharmacy 58.4; Estimated Glomerular Filt Rate > 60; Glucose Random 145 mg/dL (60-115); Potassium 4.9 mmol/L (3.3-5.1); Sodium 143 mmol/L (135-145); Total Protein 7.5 g/dL (6.5-8.0)
--- NOTE | 2023-01-29 13:36 | P.PNPSI_ITS ---
Subjective Subjective Reason For Visit: Dementia w behavioral disturbances Diagnostics Vital Signs (24Hr): Vital Signs - 24 hr 01/28/23 18:00 01/29/23 06:32 01/29/23 06:56 Temperature 97.5 F 96.9 F Pulse Rate 71 84 Respiratory Rate 16 20 Blood Pressure 128/60 129/68 Pulse Oximetry 95 94 Oxygen Delivery Method Room Air Room Air BMI result Body Mass Index 21.1 Labs 01/29/23 13:09 01/29/23 13:09 Labs: Laboratory Results - last 48 hr 01/29/23 13:09 Sodium 143 Potassium 4.9 Chloride 108 Carbon Dioxide 28 Anion Gap 12 BUN 23 H Creatinine 0.90 Estim Creat Clear Calc 58.4 Estimated GFR > 60 Random Glucose 145 H Calcium 10.5 H Total Bilirubin 0.9 AST 17 ALT 16 Alkaline Phosphatase 71 Total Protein 7.5 Albumin 4.2 Medications Medications Current Medications Acetaminophen (Acetaminophen 325 Mg Tablet) 650 mg PO Q6H PRN PRN Reason: Headache/Pain Mild Scale (1-3) Last Admin: 01/27/23 23:34 Dose: 650 mg Al Hydroxide/Mg Hydroxide (Magnesium Hydrox/Alum Hydrox 30 Ml Oral.Susp) 30 ml PO Q6H PRN PRN Reason: Heartburn/Nausea Aspirin (Aspirin 81 Mg Tab.Chew) 81 mg PO DAILY [facility] Last Admin: 01/29/23 10:28 Dose: Not Given Clonazepam (Clonazepam 0.125 Mg Tab.Rapdis) 0.25 mg PO BEDTIME [facility] Last Admin: 01/28/23 19:59 Dose: 0.25 mg Divalproex Sodium (Divalproex Sodium Sprinkles 125 Mg ) 250 mg PO BID [facility] Last Admin: 01/29/23 10:29 Dose: Not Given Enoxaparin Sodium (Enoxaparin Sodium 40 Mg/0.4 Ml Syringe) 40 mg SUBCUT Q24H [facility] Last Admin: 01/28/23 21:09 Dose: 40 mg Hydroxyzine HCl (Hydroxyzine Hcl 25 Mg Tablet) 25 mg PO Q6H PRN PRN Reason: Anxiety Last Admin: 01/28/23 15:16 Dose: 25 mg Magnesium Hydroxide (Milk Of Magnesia 30 Ml Oral.Susp) 30 ml PO DAILY PRN PRN Reason: Constipation Melatonin (Melatonin 3 Mg Tablet) 6 mg PO BEDTIME [facility] Last Admin: 01/28/23 19:59 Dose: 6 mg Olanzapine (Olanzapine 2.5 Mg Tablet) 2.5 mg PO Q6H PRN PRN Reason: agitation Last Admin: 01/28/23 15:17 Dose: 2.5 mg Risperidone (Risperidone 1 Mg Tablet) 1 mg PO DAILY [facility] Last Admin: 01/29/23 10:29 Dose: Not Given Risperidone (Risperidone 0.5 Mg Tablet) 1.5 mg PO BEDTIME [facility] Last Admin: 01/28/23 19:59 Dose: 1.5 mg Tamsulosin HCl (Tamsulosin Hcl 0.4 Mg Capsule) 0.4 mg PO DAILY [facility] Last Admin: 01/29/23 10:29 Dose: Not Given Trazodone HCl (Trazodone Hcl 25 Mg Halftab) 25 mg PO DAILY [facility] Last Admin: 01/29/23 10:29 Dose: Not Given Trazodone HCl (Trazodone Hcl 50 Mg Tablet) 50 mg PO BEDTIME [facility] Last Admin: 01/28/23 19:58 Dose: 50 mg Trazodone HCl (Trazodone Hcl 50 Mg Tablet) 50 mg PO BEDTIME PRN PRN Reason: Insomnia Allergies Allergies Allergy/AdvReac Type Severity Reaction Status Date / Time Ctjkrtf-YCH-LeU Reductase Allergy Unknown Unknown Verified 01/23/23 16:57 Inhibitor Assessment & Plan Assessment & Plan (1) Dementia: Status: Acute Code(s): F03.90 - Unspecified dementia, unspecified severity, without behavioral disturb ance, psychotic disturbance, mood disturbance, and anxiety (2) Delirium: Status: Acute Code(s): R41.0 - Disorientation, unspecified Plan The patient is an elderly male, , with a past history of dementia who was referred from another hospital for exacerbation of behavioral disturbances in the context of a UTI. The patient has been diagnosed with dementia for several years and his condition has worsen it. At this moment, the patient is a very poor historian unable to provide a coherent history. Plan 1. Gather collateral information. We will try to contact his . 2. Continue with psychotropics. 3. Continue with medical workout. 4. Follow-up with results. 4. 5 minutes checks for the next 24 hours. 01/28/2023: No changes Time Spent With Patient Time: Total time managing care of this patient today ____ minutes.
[2023-01-29 13:49] LABS: SLIDE REVIEW VERIFIED
[2023-01-29 15:29] LABS: Ammonia 30 umol/L (13-55)
--- NOTE | 2023-01-29 16:15 | PC.NURSE ---
Pt sleeping through out shift, gurgling noted. VS 153/73 [phone] 22 provider notified
--- NOTE | 2023-01-29 18:14 | PM.EVENT ---
Event Note Date of Service: 01/29/23 Event Note: 77-year-old male with history of hypertension, coronary artery disease, BPH, urinary retention, and unspecified dementia with behavioral disturbance admitted to Geriatric Psychiatry with consult placed to hospitalist service for ?lethargy?. The patient is largely unresponsive, for with flexion to pain and mumbling incomprehensible sounds in response to pain, GCS score 6. He is unable to provide history. According to nurse, patient's presentation changed last night when patient was noted to be a minimally responsive with increased agitation. This morning, limited responsiveness continued with audible gurgling sounds. Patient was not observed to have aspirated. Was given addl 5mg zyprexa last night Vital stable Blood pressure: 157/57 Heart rate: 96 Pulse ox: 92% Constitutional - somnolent and not arousable Eyes - PERRLA, EOMI Mouth- mouth breathing, tongue and mucosa dry Cardiovascular - S1S2, RRR, No edema. no skin mottling Respiratory - Normal lung expansion, Normal respiratory effort, No respiratory distress, deeply breathing, CTA bilaterally , audibly gurgling Gastrointestinal - NT / ND; +BS; No rebound or guarding Extremities - no calf tenderness bilaterally, no swelling Skin - Warm/Dry, no mottling Neurological - somnolent and not arousable though flexes to pain with incomprehensible sounds noted in response to pain (GCS 6), no spontaneous eye opening, PERRL, Plan: -scopolamine patch, p.r.n. sectioning for secretion management -chest CT negative for acute abnormality, suspect aspiration -keep patient NPO, consider [facility] [employer] evaluation a.m. -head CT ordered given acute change in mental status -UA/UC ordered with straight catheterization -discussed case with on-call psychiatrist and daytime attending. Call placed to patient's who does wish to treat possible infection.. Rule out infectious etiology. Further care plan discussion to be add tomorrow with psychiatry -Also discussed with Dr. Watson/Dr. Segovia -Will admit patient to [facility] for further management Time Spent With Patient Time: Total time managing care of this patient today ____ minutes.
[2023-01-29] MEDS: Scopolamine 1.5 MG PATCH.TD.3 EAR-BEHIND (18:53)
--- NOTE | 2023-01-29 18:54 | PC.NURSE ---
Patient unrousable Marcello Ordonez and facial grimacing noted. VS obtained as follow BP 157/77, P 96, SPO2 92%, Brown [employer] notified, Chadwick MOORE came to assess patient, Dr. Watson assessed patient. Per orders patient was straight cath, HOB elevated 45 degrees, patient had chest CT, head CT ordered oncoming RN notified. Suctioning orders put in, will notify oncoming RN to contact Respiratory.
[2023-01-29 19:01] LABS: Bilirubin Direct 0.3 mg/dL (0.0-0.5)
--- NOTE | 2023-01-29 19:54 | PM.EVENT ---
Event Note Date of Service: 01/29/23 Event Note: pt decompensating, possibly due to aspiration pneumonia; medical PA assessed and will transfer to medical floor. Discussed with primary provider DEMETRICE Dasilva who is aware. Time Spent With Patient Time: Total time managing care of this patient today ____ minutes.
[2023-01-29 19:56] LABS: Glucose, Whole Blood 170 mg/dL (60-115)
[2023-01-29 19:59] VITALS: BP 117/34; PULSE 40; RESP 28; TEMP 36.9; O2SAT 95
[2023-01-29 20:43] VITALS: TEMP 38.7
[2023-01-29 21:01] LABS: Appearance Urine Cloudy; Color Urine Dark Yellow; Glucose Urine UA Negative (Negative); Leukocyte Esterase Urine Large (3+) (Negative); Nitrite Urine Negative (Negative); PH 5.5 (5.0-9.0); UMIC TRIGGER UACC YES; Urine Blood Small (1+) (Negative); Urine Ketones Trace mg/dL (Negative); Urine Protein Trace mg/dL (Neg-Trace)
[2023-01-29 21:15] LABS: Bacteria Urine None Seen (None Seen); Hyaline Casts Urine 0-2 /LPF (0-2); Squamous Epithelial Cell Urine 0-2 /HPF (0-2); UACC Culture Trigger YES; WBC Urine >50 /HPF (0-5)
--- NOTE | 2023-01-30 10:18 | PM.PSYDC ---
DS: Providers Provider Date of Service: 01/30/23 Date of admission: 01/23/23 20:38 Primary care physician: Unknown Physician Consults: 01/23/23 22:12 Consult to Hospitalist Routine Comment: Consulting Provider: Hospitalist Reason For Exam: Transfer from [facility] 01/29/23 16:20 Consult to Hospitalist Routine Comment: Consulting Provider: Hospitalist Reason For Exam: increase lethargy DS: Diagnosis Discharge Diagnosis (1) Dementia: Status: Acute (2) Delirium: Status: Acute DS: Medications Discharge Medications Home Medications: Previous Rx's Medication Instructions Recorded enoxaparin 40 mg/0.4 mL 40 mg (0.4 mL) subcut Q24H #0 mL 01/29/23 subcutaneous syringe scopolamine base 1 mg over 3 days 1.5 mg EAR-BEHIND Q72H #0 ea 01/29/23 transdermal patch (Transderm-Scop) tamsulosin 0.4 mg capsule 0.4 mg PO DAILY #0 caps 01/29/23 Mental Status Exam Mental Status Exam Narrative: Pt lying in bed. Not responding to verbal or painful stimuli. Data Data Completed and Pending Completed studies during hospitalization [Text1]: 01/24/23 01/24/23 01/24/23 08:07 08:07 08:07 WBC RBC Hgb Hct MCV MCH MCHC RDW Plt Count MPV Immature Gran % (Auto) Neut % (Auto) Lymph % (Auto) [place] % (Auto) Eos % (Auto) Baso % (Auto) Lymph # (Auto) [place] # (Auto) Eos # (Auto) Baso # (Auto) Abs Immat Gran (auto) Absolute Neuts (auto) Absolute Nucleated RBC Nucleated RBC % (auto) Smear Tech's Comments Sodium Potassium Chloride Carbon Dioxide Anion Gap BUN Creatinine Estim Creat Clear Calc Estimated GFR POC Glucose Random Glucose Estimat Average Glucose 100 Hemoglobin A1c % 5.1 Calcium Magnesium 1.9 Total Bilirubin Direct Bilirubin AST ALT Alkaline Phosphatase Ammonia Total Protein Albumin Triglycerides 96 Cholesterol 190 LDL Cholesterol, Calc 129 H HDL Cholesterol 42 Vitamin B12 611 Folate 5.6 TSH 1.52 Free T4 1.12 Urine Color Urine Appearance Urine pH Ur Specific [place] Urine Protein Urine Glucose (UA) Urine Ketones Urine Blood Urine Nitrite Ur Leukocyte Esterase Urine RBC Urine WBC Ur Squamous Epith Cells Urine Bacteria Hyaline Casts Urine Yeast 01/29/23 01/29/23 01/29/23 13:09 13:09 14:10 WBC 13.7 H RBC 5.18 Hgb 16.0 Hct 46.6 MCV 90.0 MCH 30.9 MCHC 34.3 RDW 13.4 Plt Count 166 MPV 9.4 Immature Gran % (Auto) 0.4 Neut % (Auto) 82.2 H Lymph % (Auto) 3.0 L [place] % (Auto) 14.2 H Eos % (Auto) 0.1 Baso % (Auto) 0.1 Lymph # (Auto) 0.4 L [place] # (Auto) 2.0 H Eos # (Auto) 0.0 Baso # (Auto) 0.0 Abs Immat Gran (auto) 0.06 H Absolute Neuts (auto) 11.2 H Absolute Nucleated RBC 0.000 Nucleated RBC % (auto) 0.0 Smear Tech's Comments VERIFIED Sodium 143 Potassium 4.9 Chloride 108 Carbon Dioxide 28 Anion Gap 12 BUN 23 H Creatinine 0.90 Estim Creat Clear Calc 58.4 Estimated GFR > 60 POC Glucose Random Glucose 145 H Estimat Average Glucose Hemoglobin A1c % Calcium 10.5 H Magnesium Total Bilirubin 0.9 Direct Bilirubin 0.3 AST 17 ALT 16 Alkaline Phosphatase 71 Ammonia Total Protein 7.5 Albumin 4.2 Triglycerides Cholesterol LDL Cholesterol, Calc HDL Cholesterol Vitamin B12 Folate TSH 1.00 Free T4 Urine Color Dark Yellow Urine Appearance Cloudy Urine pH 5.5 Ur Specific [place] 1.020 Urine Protein Trace Urine Glucose (UA) Negative Urine Ketones Trace Urine Blood Small (1+) H Urine Nitrite Negative Ur Leukocyte Esterase Large (3+) H Urine RBC 11-20 H Urine WBC >50 H Ur Squamous Epith Cells 0-2 Urine Bacteria None Seen Hyaline Casts 0-2 Urine Yeast Present 01/29/23 01/29/23 14:58 19:51 WBC RBC Hgb Hct MCV MCH MCHC RDW Plt Count MPV Immature Gran % (Auto) Neut % (Auto) Lymph % (Auto) [place] % (Auto) Eos % (Auto) Baso % (Auto) Lymph # (Auto) [place] # (Auto) Eos # (Auto) Baso # (Auto) Abs Immat Gran (auto) Absolute Neuts (auto) Absolute Nucleated RBC Nucleated RBC % (auto) Smear Tech's Comments Sodium Potassium Chloride Carbon Dioxide Anion Gap BUN Creatinine Estim Creat Clear Calc Estimated GFR POC Glucose 170 H Random Glucose Estimat Average Glucose Hemoglobin A1c % Calcium Magnesium Total Bilirubin Direct Bilirubin AST ALT Alkaline Phosphatase Ammonia 30 Total Protein Albumin Triglycerides Cholesterol LDL Cholesterol, Calc HDL Cholesterol Vitamin B12 Folate TSH Free T4 Urine Color Urine Appearance Urine pH Ur Specific [place] Urine Protein Urine Glucose (UA) Urine Ketones Urine Blood Urine Nitrite Ur Leukocyte Esterase Urine RBC Urine WBC Ur Squamous Epith Cells Urine Bacteria Hyaline Casts Urine Yeast 01/29/23 Unknown Urine Catheterized - Straight Catheter Urine Culture - Pending Imaging Diagnostic Imaging Impressions Chest CT 01/29/23 16:51 IMPRESSION: 1. Marked emphysematous changes of lungs. 2. No acute abnormality of chest. Fleischner guidelines were followed. Head CT 01/29/23 20:40 IMPRESSION: No acute intracranial process seen. DS: Summary Hospital Course Hospital Course: Subjective Notes: Alva Warning, Conditional Voluntary and Section 12B Narrative: The patient is a 77-year-old male, for the last 53 years, father of 1 adult son, resident of memory care unit, referred to [facility] for exacerbation of disorganized behavior and agitation.? The patient carries a diagnosis of dementia since 2014 and recently he had being transferred to the memory unit due to the progression of his dementia.? The patient had been admitted before to the hospital due to similar presentations but he was returned back after improving his behavior in the unit.? The present episode started a few weeks ago with worsening of his memory, increased agitation and disorganized behavior.? He was rushed to the emergency room and admitted into the hospital since the patient had a UTI and needed to have a Keith catheter.? The infection was resolved and he was able to urinate by himself without the need of the Keith.? Even though, he was assessed by crisis and since he remains disorganized was transferring to this facility for psychiatric stabilization.? Apparently, the patient had been several times on restraints. On admission, the patient is a very poor historian, he was unable to provide details of the previous admission.? He realized that he is in a hospital, he adamantly denies auditory or visual hallucinations and he is able to contract for safety.? Even though, it is unlikely that he understood 100% Alva warning.? We will try to gather collateral information from her who is the primary home care assistant. Past Psychiatric History: No prior psychiatric history as per 's report. Medical Evaluation Reviewed: Yes HOSPITAL COURSE On the unit, pt presented as minimally responding. He was noted to have advanced dementia. He was noted to have excessive secretions and concern for aspiration pneumonia. CBC showed elevated WBC. Pt was transferred to medical floor for further management and discussion of goals of care- considering comfort measures. Status at Discharge Cognitive/behavioral status at discharge: Pt non verbal, minimally responding to verbal or painful stimuli. secretion noted. Time Spent with Patient Time attestation: Total time managing care of this patient today ____ minutes. Discharge Plan Discharge Anticipated Discharge Date/Time: 01/29/23 21:04 Patient Disposition: Xfer Other Discharge Diagnosis: dementia with superimposed delirum Referrals: Physician,Unknown J [Primary Care Provider] - 1 Week Discharge Medications: New tamsulosin 0.4 mg Capsule 0.4 mg PO DAILY Qty: 0 0RF scopolamine base [Transderm-Scop] 1 mg over 3 days Patch 3 Day 1.5 mg EAR-BEHIND Q72H Qty: 0 0RF enoxaparin 40 mg/0.4 mL Syringe 40 mg subcut Q24H Qty: 0 0RF Discontinued acetaminophen 325 mg Tablet 650 mg PO Q6H PRN (Reason: Pain, Mild) divalproex 250 mg Tablet,Delayed Release (Dr/Ec) 250 mg PO BID trazodone 50 mg Tablet 25 mg PO DAILY trazodone 50 mg Tablet 50 mg PO BEDTIME melatonin 3 mg Tablet 6 mg PO BEDTIME olanzapine 2.5 mg Tablet 2.5 mg PO DAILY PRN (Reason: Agitation) Rx Instructions: Use 1st tamsulosin 0.4 mg Capsule 0.4 mg PO DAILY risperidone 1 mg Tablet 1 mg PO DAILY risperidone 1 mg Tablet 1.5 mg PO BEDTIME enoxaparin 40 mg/0.4 mL Syringe 40 mg SUBCUT DAILY aspirin 81 mg Tablet,Chewable 81 mg PO DAILY clonazepam 0.25 mg tablet,disintegrating 0.25 mg PO BEDTIME Discharge Orders: Discharge Order (Routine); Ordered 01/29/23 Ordered By: Leon Freeman Diet: deferred Activity on Discharge: As tolerated Stand Alone Forms: Patient Portal Discharge page Care Plan Goals: transfer to medical floor Health Concerns: transfer to medical floor Plan of Treatment: transfer to medical floor Assessment: transfer to medical floor Discharge Date/Time: 01/29/23 21:11
== END 2023-01-29 21:11 | disposition other institution (70) | DRG 884 ==
PROVIDERS: Clinical Nurse Specialist Psychiatric/Mental Health, Adult; Physician Assistant; Social Worker; Admitting Provider Psychiatry & Neurology Psychiatry; Visit Provider Psychiatry & Neurology Psychiatry
DX: F03.918 Unspecified dementia, unspecified severity, with other behavioral disturbance (principal); J69.0 Pneumonitis due to inhalation of food and vomit; F05 Delirium due to known physiological condition; I25.10 Atherosclerotic heart disease of native coronary artery without angina pectoris; I10 Essential (primary) hypertension; N40.1 Benign prostatic hyperplasia with lower urinary tract symptoms; R33.8 Other retention of urine; Z87.891 Personal history of nicotine dependence
CPT/HCPCS: 36415; 70450; 71250; 80053; 80061; 81001; 81003; 82140; 82248; 82607; 82746; 82947; 83036; 83735; 84439; 84443; 85025; 87086; 87088; 87186; 92950; J1650

== ENCOUNTER → 2023-01-23 20:38 | Outpatient (BNV) | payer MEDICARE, SELFPAY | PROVIDERS: Admitting Provider Psychiatry & Neurology Psychiatry; Visit Provider Student in an Organized Health Care Education/Training Program | DX: Z02.2 Encounter for examination for admission to residential institution (principal) | CPT/HCPCS: 99429; 99499 ==

== ENCOUNTER → 2023-01-23 20:38 | Outpatient (BNV) | payer OTHER, SELFPAY | PROVIDERS: Admitting Provider Psychiatry & Neurology Psychiatry; Visit Provider Psychiatry & Neurology Psychiatry | DX: F03.90 Unspecified dementia, unspecified severity, without behavioral disturbance, psychotic disturbance, mood disturbance, and anxiety (principal); R41.0 Disorientation, unspecified | CPT/HCPCS: 90792; 99231; 99238 ==

== ENCOUNTER 2023-01-29 21:17 | Inpatient (IN) | payer MEDICARE, SELFPAY ==
--- NOTE | 2023-01-29 20:19 | PM.IMHP ---
History of Present Illness Date of Service: 01/29/23 Attending physician on admission: Shahrzad Segovia Chief Complaint: unresponsiveness 77-year-old male with history significant for hypertension, coronary artery disease, BPH with urinary retention, and unspecified dementia with behavioral disturbance being admitted to hospitalist service from geriatric psychiatry. On review of both psychiatric notes and hospice consultation, patient has had intermittent episodes of minimal responsiveness. However, per nursing staff, last night, patient became very agitated and subsequently minimally responsive. He was given oral Zyprexa, but has been taking this on a somewhat scheduled basis he for agitation. This morning patient remained minimally responsive with audible gurgling. He was not observed to have aspirated. Hospitalist consult was placed. On exam, patient GCS score 6, flexion to pain with incomprehensible sounds, no voluntary eye movements. He did have audible gurgling but no mottling or cyanosis. Discussed with psychiatry provider who states, there was a plan to discuss further care plan including comfort measures with patient's scheduled for tomorrow. At the time of exam, vitals stable with blood pressure 157/57, heart rate 96, oximetry 92%. Chest CT was negative for any acute cardiopulmonary abnormality but does show extensive emphysematous changes. There is a leukocytosis of 13.7. Renal function baseline, electrolyte levels normal. Hepatic function normal. TSH pending. Ammonia level normal. UA/UC with straight catheterization ordered but not yet collected. Head CT ordered and pending. I did discuss patient presentation with attending psychiatry provider, call psychiatry provider, Dr. Watson/Luca, and did call regarding a patient status change. Discussed suspicion of aspiration pneumonia. Patient is not hypoxic. Patient's who is healthcare proxy does desire to treat acute infection and understands that patient may continue to aspirate. Patient will be admitted to hospitalist service for further management of presumed aspiration pneumonia with acute metabolic encephalopathy. Review of Systems Review of Systems: Yes Unobtainable due to mental status PMFSH Medical History BPH w urinary obs/LUTS Coronary artery disease Dementia Hypertension Social History Household Members: None Housing: Intermediate Do you presently have visiting nurse or other home services: No Unable to assess alcohol history related to: Unable to respond Patient Tobacco Use Status: Former Tobacco user Tobacco use type: Cigarette Advance Directives: No Advance Directives Information Provided: No service: Yes Sexual orientation: Straight/Heterosexual Meds Allergies Allergy/AdvReac Type Severity Reaction Status Date / Time Crikxka-XTC-SgB Reductase Allergy Unknown Unknown Verified 01/23/23 16:57 Inhibitor Active Medications: Current Medications Acetaminophen (Acetaminophen 325 Mg Tablet) 650 mg PO Q6H PRN PRN Reason: Pain, Mild (Pain Scale 1-3) Docusate Sodium (Docusate Sodium 100 Mg Capsule) 100 mg PO DAILY PRN PRN Reason: Constipation Enoxaparin Sodium (Enoxaparin Sodium 40 Mg/0.4 Ml Syringe) 40 mg SUBCUT Q24H [facility] Sodium Chloride (Ns) 1,000 mls @ 75 mls/hr IVCONT .[id number] [facility] Ondansetron HCl (Ondansetron Hcl 4 Mg/2 Ml Vial) 4 mg IVPUSH Q8H PRN PRN Reason: Nausea and Vomiting Sodium Chloride (0.9 % Sodium Chloride Flush 3 Ml Syringe) 3 ml IVFLUSH QSHIFT [facility] Home Medications Medication Instructions Recorded Confirmed Last Taken Type acetaminophen 325 mg tablet 650 mg PO Q6H PRN Pain, Mild 01/24/23 01/29/23 01/29/23 History divalproex 250 mg tablet,delayed 250 mg PO BID 01/24/23 01/29/23 01/29/23 History release enoxaparin 40 mg/0.4 mL 40 mg subcut DAILY 01/24/23 01/29/23 01/29/23 History subcutaneous syringe melatonin 3 mg tablet 6 mg PO BEDTIME 01/24/23 01/29/23 01/28/23 History olanzapine 2.5 mg tablet 2.5 mg PO DAILY PRN Agitation 01/24/23 01/29/23 01/29/23 History risperidone 1 mg tablet 1 mg PO DAILY 01/24/23 01/29/23 01/29/23 History risperidone 1 mg tablet 1.5 mg PO BEDTIME 01/24/23 01/29/23 01/28/23 History tamsulosin 0.4 mg capsule 0.4 mg PO DAILY 01/24/23 01/29/23 01/29/23 History trazodone 50 mg tablet 25 mg PO DAILY 01/24/23 01/29/23 01/29/23 History trazodone 50 mg tablet 50 mg PO BEDTIME 01/24/23 01/29/23 01/29/23 History aspirin 81 mg chewable tablet 81 mg PO DAILY 01/29/23 01/29/23 01/29/23 History clonazepam 0.25 mg disintegrating 0.25 mg PO BEDTIME 01/29/23 01/29/23 01/28/23 History tablet Physical Exam Vital Signs and Narrative: Constitutional - somnolent and not arousable, no apparent distress Eyes - PERRLA, EOMI Mouth- met with breathing, tongue mucosa dry Cardiovascular - S1S2, RRR, No edema, no skin mottling or cyanosis Respiratory - Normal lung expansion, Normal respiratory effort, No respiratory distress deeply breathing, CTA bilaterally, audible gurgling Gastrointestinal - NT / ND; +BS; No rebound or guarding Extremities - no calf tenderness bilaterally, no swelling Skin - Warm/Dry Neurological - somnolent, not arousable, flexion and pain with incomprehensible sounds noted response to pain GCS 6, no spontaneous eye opening, PERRL Assessment and Plan (1) Aspiration into respiratory tract: Status: Acute (2) Acute metabolic encephalopathy: Status: Acute Plan 77-year-old male with history significant for hypertension, coronary artery disease, BPH with urinary retention, and unspecified dementia with behavioral disturbance being admitted to hospitalist service from geriatric psychiatry for further management of minimal responsiveness/acute metabolic encephalopathy due to suspected aspiration pneumonia. # suspected aspiration pneumonia with sepsis -chest CT negative for any acute cardiopulmonary abnormality -patient audibly gurgling -no hypoxia. Leukocytosis 13.7, now febrile with rectal temp 101.6, now with tachypnea to 40. No hypotension -IV Zosyn 4 g Q 6h (initiated 01/29) -keep patient NPO, [employer] eval pending -suctioning p.r.n. -aspiration precautions -gentle IVF -follow CBC, cultures -discussed acute mental status change in the background of advanced dementia possible aspiration pneumonia with who does desire patient be treated for infection but is DNR/DNI # acute metabolic encephalopathy -may be component of advanced dementia but appears acutely worsened likely in setting of infection as above -renal function, electrolytes, hepatic function, ammonia level all within normal limits. TSH pending -head CT pending -UA/UC pending -continue antibiotics as above -monitor mentation # hypertension -blood pressure reasonably controlled -not on home antihypertensives # advanced dementia with behavioral disturbance -hold p.o. antipsychotics/mood stabilizers in setting of aspiration -monitor mentation DVT prophylaxis-Lovenox DNR/DNI Per psychiatry provider, meeting had been scheduled with for tomorrow morning to discuss further care plan including transition to hospice/[employer] in setting of advanced dementia. I did speak with who is healthcare proxy this evening who does desire patient be treated for possible infection Patient requires inpatient stay at least 2 midnights for management suspected aspiration pneumonia meeting sepsis criteria with acute metabolic encephalopathy requiring IV antibiotics and close monitoring of mentation Time Spent With Patient Time: Total time managing care of this patient today ____ minutes. Quality Stroke Does the patient have a stroke diagnosis?: No VTE Prior VTE?: No VTE Risk Level:: Medical - moderate - high VTE Device Contraindication: Treatment Not Indicated VTE Drug Contraindication: N/A - Med Ordered
--- NOTE | 2023-01-29 20:31 | PHA.MEDREC ---
Pharmacy Consult ? Medication Reconciliation Pharmacy has completed the medication reconciliation. MEDICATIONS PER S1 MED REC PER PROVIDER
[2023-01-29 21:55] VITALS: BP 127/80; PULSE 103; RESP 19; O2SAT 95
--- NOTE | 2023-01-29 22:02 | PC.NURSE ---
Pt condition has continued to deteriorate through the day- 1. unresponsive(heydi 2-1 mm sluggish) pulls away to noxious stimulation 2. temp 101.6 3. tachypneic rr-28-30 bpm 4. sao2 94% 5. breath sounds with coarse rhonchi throughout 6. pt has a loose nonproductive cough 7. bradycardic apical 48-58 bpm irregular b/p 117/34 8. pt has been transported to ct for scan of brain-results pending-plan a. providers dr conde and leobardo pharmacy technician inpatient notified of the above documentation b. hob maintained in high fowlers to promote resp ease c. oropharygeal suctioning performed by resp therapist-large amounts of palumbo secretions cleared from airway d. iv access obtained left forearm # 20 gauge-e. poc checked 170 f. nurse to nurse report given to ankur norris case reviewed and questions answered g. pt transported to [facility].
[2023-01-30] VITALS (14 sets, daily range): BP systolic 96–145; BP diastolic 56–68; PULSE 86–95; RESP 17–24; TEMP 36.1–38.1; O2SAT 83–98; BMI 17.7
[2023-01-30] MEDS: 0.9 % Sodium Chloride 1,000 ML 75 ML IVCONT ×2 (00:06→15:05)
[2023-01-30] MEDS: Piperacillin Sodium/Tazobactam 4.5 GM in 0.9 % Sodium Chloride 100 ML IV ×5 (00:10→21:36)
[2023-01-30] MEDS: Scopolamine 1.5 MG PATCH.TD.3 EAR-BEHIND (00:15)
[2023-01-30] MEDS: Acetaminophen Supp 325 MG SUPP.RECT 975 MG PR (01:36)
[2023-01-30] MEDS: Enoxaparin Sodium 40 MG/0.4 ML SYRINGE SUBCUT ×2 (01:41→21:37)
[2023-01-30] MEDS: 0.9 % Sodium Chloride Flush 3 ML SYRINGE IVFLUSH ×2 (01:41→23:39)
[2023-01-30 05:54] LABS: Basophils Percent Auto 0.1 % (0-2); Hemoglobin 14.8 g/dl (14.0-18.0); Imm Gran Abs Auto 0.05 X10*3/uL (0.00-0.03); Imm Gran Pct Auto 0.3 % (0.0-0.4); Lymphocytes Absolute Auto 0.7 X10*3/uL (1.2-4.9); Lymphocytes Percent Auto 4.9 % (20-40); MANUAL DIFF FLAG SCAN; Mean Corpuscular HGB Conc 33.6 g/dl (31.0-36.0); Mean Corpuscular Hemoglobin 30.6 pg (27.0-33.0); Mean Corpuscular Volume 90.9 fL (80.0-98.0); Mean Platelet Volume 10.1 fL (9.4-12.4); Monocytes Absolute Auto 2.9 X10*3/uL (0.1-1.2); Neutrophils Absolute Auto 10.7 x10*3/uL (2.0-8.3); Neutrophils Percent Auto 74.7 % (45-73); Platelet Count 173 X10*3/uL (160-400); Red Blood Count 4.84 X10*6/uL (4.60-5.80); Red Cell Distribution Width 13.4 % (11.0-16.0); SCAN SMEAR FLAG 1; White Blood Count 14.4 X10*3/uL (4.8-10.8)
[2023-01-30 06:13] LABS: Anion Gap 16 (12-20); Blood Urea Nitrogen 33 mg/dL (9-16); Carbon Dioxide 22 mmol/L (22-29); Chloride 110 mmol/L (96-108); Estimated Glomerular Filt Rate > 60; Glucose Random 124 mg/dL (60-115); Potassium 4.2 mmol/L (3.3-5.1); Sodium 144 mmol/L (135-145)
[2023-01-30 06:31] LABS: SLIDE REVIEW VERIFIED
--- NOTE | 2023-01-30 08:45 | MHC.CM.PN ---
Patient has Dementia; CM spoke with Patient's /HCP/Lara at [phone] and addressed IMM(Original will be mailed certified letter to Lara and a copy has been placed on the chart). [place] [facility] [place] [facility] [place] at [facility](no plan for Patient to return there). Tentative dc plan is for Patient to return to [facility]; CM has initiated and will follow for dc planning.
--- NOTE | 2023-01-30 16:35 | MHC.SPEECHCO ---
Pt lethargic all day. Per RN, bringing up large amounts of green tinged sputum requiring suctioning. PHYSICAL BIOCHEMIST will continue to monitor.
--- NOTE | 2023-01-30 17:00 | P.PNIM_ITS ---
Subjective Subjective Date of Service: 01/31/23 Interval History: Admitted for psych due to concern for aspiration pneumonia, patient in psych was noted to have audible gurgling and was noted to be somnolent, at present awake, alert, moving in bed, coughing intermittently, O2 sat 96% on OxyMask. Review of Systems Unable to obtain due to mental status Physical Exam Vital Signs: Vital Signs: Last Vital Signs Temp 99.0 F 01/30/23 15:17 Pulse 87 01/30/23 15:17 Resp 17 01/30/23 15:17 BP 96/62 01/30/23 15:17 Pulse Ox 96 01/30/23 15:17 O2 Del Method Oxymask 01/30/23 15:17 O2 Flow Rate 8 01/30/23 15:17 Oxygen Flow Rate 8 01/30/23 06:00 BMI result Body Mass Index 17.7 Const: Other: General awake alert moving all 4 extremities , in no acute distress, noted to have congested cough. Neck supple no JVD. CVS regular rate rhythm, Respiratory lungs coarse breath sound, no respiratory distress, no wheeze, no rhonchi. Gastrointestinal abdomen soft, nontender, bowel sounds audible, no no guarding , no rigidity. Extremities no edema. Neuro moving all 4 extremity Skin no rash Objective Data Active Medications Acetaminophen (Acetaminophen 325 Mg Tablet) 650 mg PO Q6H PRN PRN Reason: Pain, Mild (Pain Scale 1-3) Divalproex Sodium (Divalproex Sodium Sprinkles 125 Mg ) 250 mg PO BID [facility] Docusate Sodium (Docusate Sodium 100 Mg Capsule) 100 mg PO DAILY PRN PRN Reason: Constipation Enoxaparin Sodium (Enoxaparin Sodium 40 Mg/0.4 Ml Syringe) 40 mg SUBCUT Q24H [facility] Last Admin: 01/30/23 01:41 Dose: 40 mg Documented By: DIONICIO Sodium Chloride (Ns) 1,000 mls @ 75 mls/hr IVCONT .[id number] [facility] Last Admin: 01/30/23 15:05 Dose: 75 mls/hr Documented By: DHAVAL Piperacillin Sod/Tazobactam (Sod 4.5 gm/ Sodium Chloride) 100 mls @ 200 mls/hr IV Q6H [facility] Last Infusion: 01/30/23 15:54 Dose: 0 mls/hr Documented By: DHAVAL Ondansetron HCl (Ondansetron Hcl 4 Mg/2 Ml Vial) 4 mg IVPUSH Q8H PRN PRN Reason: Nausea and Vomiting Scopolamine (Scopolamine 1.5 Mg Patch.Td.3) 1.5 mg EAR-BEHIND Q72H [facility] Last Admin: 01/30/23 00:15 Dose: 1.5 mg Documented By: DIONICIO Sodium Chloride (0.9 % Sodium Chloride Flush 3 Ml Syringe) 3 ml IVFLUSH QSHIFT [facility] Last Admin: 01/30/23 15:07 Dose: Not Given Documented By: DHAVAL Non-Admin Reason: No Insulin Coverage Tamsulosin HCl (Tamsulosin Hcl 0.4 Mg Capsule) 0.4 mg PO DAILY [facility] Last Admin: 01/30/23 09:35 Dose: Not Given Documented By: DHAVAL Non-Admin Reason: NPO Labs 01/30/23 05:22 01/30/23 05:22 Labs: Laboratory Results - last 24 hr 01/30/23 01/30/23 05:22 05:22 MCV 90.9 MCH 30.6 MCHC 33.6 RDW 13.4 Plt Count 173 MPV 10.1 Immature Gran % (Auto) 0.3 Neut % (Auto) 74.7 H Lymph % (Auto) 4.9 L Kendall % (Auto) 20.0 H Eos % (Auto) 0.0 Baso % (Auto) 0.1 Lymph # (Auto) 0.7 L Kendall # (Auto) 2.9 H Eos # (Auto) 0.0 Baso # (Auto) 0.0 Abs Immat Gran (auto) 0.05 H Absolute Neuts (auto) 10.7 H Absolute Nucleated RBC 0.000 Nucleated RBC % (auto) 0.0 Smear Tech's Comments VERIFIED Anion Gap 16 Estim Creat Clear Calc TNP Estimated GFR > 60 Random Glucose 124 H Calcium 10.0 Assessment and Plan (1) Acute metabolic encephalopathy: Status: Acute (2) Aspiration into respiratory tract: Status: Acute (3) Dementia: Status: Acute Plan 77-year-old male with history significant for hypertension, coronary artery disease, BPH with urinary retention, and unspecified dementia with behavioral disturbance being admitted to hospitalist service from geriatric psychiatry for further management of minimal responsiveness/acute metabolic encephalopathy due to suspected aspiration pneumonia. # suspected aspiration pneumonia with sepsis Persistent congestive cough, no respiratory distress -chest CT negative for any acute cardiopulmonary abnormality Persistent leukocytosis low-grade fever last night, continue IV Zosyn 4 g Q 6h (initiated 01/29), continue IV fluid, aspiration precautions -seen by speech therapy since patient was noted to be lethargic , no evaluation was done , speech will continue to follow # acute metabolic encephalopathy -may be component of advanced dementia ,? acutely worsened likely in setting of infection as above -renal function, electrolytes, hepatic function, ammonia level all within normal limits.? TSH normal -head CT negative. -UA neg -continue antibiotics as above -monitor mentation # hypertension -blood pressure soft ,not on home antihypertensives # advanced dementia with behavioral disturbance -on po depakote, patient noted to be somnolent lethargic most of the day therefore will reduce dose of Depakote 125 mg b.i.d., hold p.o. antipsychotics/mood stabilizers in setting of aspiration -monitor mentation -patient is a resident of [facility] Care Unit, he was recently treated for UTI and required Keith catheter placement is since patient symptoms persist and he remained disorganized therefore was referred to [facility] due to exacerbation of disorganized behavior and agitation, while in [facility] psych patient continue to have episodes of agitation requiring olanzapine,And was noted to be sleeping most of the mornings, and plan was being made to transition patient to hospice/[facility] in the setting of advanced dementia however I was told that there was no family meeting scheduled with psych today DVT prophylaxis-Lovenox DNR/DNI Patient requires continued inpatient stay for suspected aspiration pneumonia meeting sepsis criteria with acute metabolic encephalopathy requiring IV antibiotics and close monitoring of mentation Time Spent With Patient Time: Total time managing care of this patient today ____ minutes. Quality Stroke Does the patient have a stroke diagnosis?: No VTE Prior VTE?: No VTE Risk Level:: Medical - moderate - high VTE Device Contraindication: Treatment Not Indicated VTE Drug Contraindication: N/A - Med Ordered
[2023-01-31] VITALS (11 sets, daily range): BP systolic 120–140; BP diastolic 63–70; PULSE 84–111; RESP 17–28; TEMP 36.8–37.2; O2SAT 90–95
[2023-01-31] MEDS: 0.9 % Sodium Chloride 1,000 ML 75 ML IVCONT (04:23)
[2023-01-31] MEDS: Piperacillin Sodium/Tazobactam 4.5 GM in 0.9 % Sodium Chloride 100 ML IV ×2 (04:23→09:16)
--- NOTE | 2023-01-31 10:16 | MHC.CM.PN ---
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
--- NOTE | 2023-01-31 10:24 | MHC.SLORD ---
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
--- NOTE | 2023-01-31 14:51 | P.PNIM_ITS ---
Subjective Subjective Date of Service: 01/31/23 Interval History: Patient noted to be somnolent this morning with intermittent congested cough and gurgling. On Oxy mask 8 L finger oximetry 93 Review of Systems Unable to obtain review of system due to mental status Physical Exam Vital Signs: Vital Signs: Last Vital Signs Temp 98.6 F 01/31/23 11:04 Pulse 84 01/31/23 11:04 Resp 22 H 01/31/23 11:04 BP 135/63 01/31/23 11:04 Pulse Ox 93 01/31/23 11:04 O2 Del Method Oxymask 01/31/23 11:04 O2 Flow Rate 7 01/31/23 11:04 Oxygen Flow Rate 8 01/30/23 06:00 BMI result Body Mass Index 17.7 Const: Other: General somnolent, noted to have con gested cough.? Nec k? supple no JVD. CVS? regular rate rhythm, Respirator y lungs coarse salvador ath sound, no resp iratory distress, no wheeze, no rhon chi. Gastrointesti nal abdomen soft, bowel sounds audib le, no rigidity. E xtremities no guillermo a. Neuro moving al l 4 extremity Skin no rash Objective Data Active Medications Acetaminophen (Acetaminophen 325 Mg Tablet) 650 mg PO Q6H PRN PRN Reason: Pain, Mild (Pain Scale 1-3) Divalproex Sodium (Divalproex Sodium Sprinkles 125 Mg Cap.Spr) 125 mg PO BID [facility] Lorazepam (Lorazepam 2 Mg/Ml Vial) 0.5 mg IVPUSH Q4H PRN PRN Reason: Restlessness Morphine Sulfate (Morphine Sulfate 2 Mg/Ml Cartridge) 2 mg IVPUSH Q2H PRN; Protocol PRN Reason: Shortness of Breath Scopolamine (Scopolamine 1.5 Mg Patch.Td.3) 1.5 mg EAR-BEHIND Q72H [facility] Last Admin: 01/30/23 00:15 Dose: 1.5 mg Documented By: DIONICIO Labs 01/30/23 05:22 01/30/23 05:22 Microbiology Microbiology Results: Microbiology 01/29/23 21:59 Blood Culture - Preliminary Blood - Venous No growth after 24 hours. 01/29/23 21:59 Blood Culture - Preliminary Blood - Venous No growth after 24 hours. Assessment and Plan (1) Acute metabolic encephalopathy: Status: Acute (2) Aspiration into respiratory tract: Status: Acute (3) Dementia: Status: Acute Plan 77-year-old male with history significant for hypertension, coronary artery disease, BPH with urinary retention, and unspecified dementia with behavioral disturbance admitted to hospitalist service from geriatric psychiatry for further management of minimal responsiveness/acute metabolic encephalopathy due to suspected aspiration pneumonia, CT chest showed no acute abnormality but clinically patient seemed to have aspiration pneumonia therefore placed on IV Zosyn, and IV fluids patient remained confused, unable to follow, speech therapist was unable to do swallow eval due to persistent somnolence and confusion the patient remains NPO reviewed records from Psychiatry it seems since admission patient has been remained confused with episodes of agitation requiring antipsychotic medication and has been sleeping most of the day in reviewing patient past medical history of progressive dementia case discussed with patient's , healthcare proxy and she agreed for comfort measures due to poor quality of life and as per patient's wishes he he did not want artificial nutrition left for will discontinue all antibiotics and current antipsychotics and care of patient changed to AMMONIUM SULFATE OPERATOR will place patient on IV morphine as needed for restlessness and respiratory distress, IV Ativan and scopolamine patch. Diagnosis # suspected aspiration pneumonia with sepsis. # acute metabolic encephalopathy. # hypertension # advanced dementia with behavioral disturbance Patient requires continued inpatient stay for AMMONIUM SULFATE OPERATOR on IV morphine and IV Ativan. Time Spent With Patient Time: Total time managing care of this patient today ____ minutes. Quality Stroke Does the patient have a stroke diagnosis?: No VTE Prior VTE?: No VTE Risk Level:: Medical - moderate - high VTE Device Contraindication: Treatment Not Indicated VTE Drug Contraindication: N/A - Med Ordered
[2023-01-31] MEDS: Morphine Sulfate 2 MG/ML CARTRIDGE IVPUSH ×5 (15:24→22:57)
[2023-01-31] MEDS: LORazepam 2 MG/ML VIAL 0.5 MG IVPUSH ×2 (17:11→21:23)
[2023-02-01] VITALS (15 sets, daily range): BP systolic 83; BP diastolic 53; PULSE 88–121; RESP 18–24; TEMP 36.9; O2SAT 88–91
[2023-02-01] MEDS: Morphine Sulfate 2 MG/ML CARTRIDGE IVPUSH ×4 (01:05→07:00)
[2023-02-01] MEDS: Morphine Sulfate 2 MG/ML CARTRIDGE 3 MG IVPUSH ×3 (08:18→09:45)
[2023-02-01] MEDS: LORazepam 2 MG/ML VIAL 0.5 MG IVPUSH (08:18)
[2023-02-01] MEDS: Morphine Sulfate 2 MG/ML CARTRIDGE 4 MG IVPUSH ×2 (10:45→12:09)
[2023-02-01] MEDS: Morphine Sulfate 2 MG/ML CARTRIDGE 5 MG IVPUSH ×2 (12:42→13:48)
[2023-02-01] MEDS: LORazepam 2 MG/ML VIAL 1 MG IVPUSH (14:26)
[2023-02-01] MEDS: Morphine Sulfate 2 MG/ML CARTRIDGE 6 MG IVPUSH (14:27)
--- NOTE | 2023-02-01 15:28 | P.DN_ITS ---
Discharge Sum: Prov Provider Primary care physician: Mode Rosenberg Discharge Sum: Diag Contributing Factors (1) Acute metabolic encephalopathy: (2) Aspiration into respiratory tract: (3) Dementia: Discharge Sum: Summary Date and Time Date of admission: 01/29/23 21:17 Summary Details: history of presenting illness: Date of Service: 01/29/23 Attending physician on admission: Shahrzad Segovia Chief Complaint: unresponsiveness 77-year-old male with history significant for hypertension, coronary artery disease, BPH with urinary retention, and unspecified dementia with behavioral disturbance being admitted to hospitalist service from geriatric psychiatry.? On review of both psychiatric notes and hospice consultation, patient has had intermittent episodes of minimal responsiveness.? However, per nursing staff, last night, patient became very agitated and subsequently minimally responsive.? He was given oral Zyprexa, but has been taking this on a somewhat scheduled basis he for agitation.? This morning patient remained minimally responsive with audible gurgling.? He was not observed to have aspirated.? Hospitalist consult was placed.? On exam, patient GCS score 6, flexion to pain with incomprehensible sounds, no voluntary eye movements.? He did have audible gurgling but no mottling or cyanosis.? Discussed with psychiatry provider who states, there was a plan to discuss further care plan including comfort measures with patient's scheduled for tomorrow.? At the time of exam, vitals stable with blood pressure 157/57, heart rate 96, oximetry 92%.? Chest CT was negative for any acute cardiopulmonary abnormality but does show extensive emphysematous changes.? There is a leukocytosis of 13.7.? Renal function baseline, electrolyte levels normal.? Hepatic function normal.? TSH pending.? Ammonia level normal.? UA/UC with straight faiza terization ordered but not yet collected.? Head CT ordered and pending.? I did discuss patient presentation with attending psychiatry provider, call psychiatry provider, Dr. Watson/Luca, and did call regarding a patient status change.? Discussed suspicion of aspiration pneumonia.? Patient is not hypoxic.? Patient's who is healthcare proxy does desire to treat acute infection and understands that patient may continue to aspirate.? Patient will be admitted to hospitalist service for further management of presumed aspiration pneumonia with acute metabolic encephalopathy. hospital course 77-year-old male with history significant for hypertension, coronary artery disease, BPH with urinary retention, and unspecified dementia with behavioral disturbance admitted to hospitalist service from geriatric psychiatry for further management of minimal responsiveness/acute metabolic encephalopathy due to suspected aspiration pneumonia, CT chest showed no acute abnormality but clinically patient seemed to have aspiration pneumonia therefore placed on IV Zosyn, and IV fluids patient remained confused, remained NPO due to persistent somnolence and confusion, all records were reviewed from Psychiatry and case discussed with patient's healthcare proxy who informed that patient has been in and out of hospitals due to worsening confusion and periods of agitation and has been maintained on antipsychotic medication with poor quality of life therefore patient was transition to comfort care on 01/31 and placed on IV morphine, IV Ativan and scopolamine patient peacefully at 15:30. no pulse, no respiratory rate noted pupils fixed and dilated. Diagnosis # suspected aspiration pneumonia with sepsis. ? # acute metabolic encephalopathy. # hypertension # advanced dementia with behavioral disturbance Additional Data Attending physician: Renetta Mauricio MD
== END 2023-02-01 15:30 | disposition expired | DRG 871 ==
PROVIDERS: Physician Assistant; Admitting Provider Psychiatry & Neurology Psychiatry; PCP Internal Medicine; Visit Provider Hospitalist
DX: A41.9 Sepsis, unspecified organism (principal); G93.41 Metabolic encephalopathy; J69.0 Pneumonitis due to inhalation of food and vomit; F03.918 Unspecified dementia, unspecified severity, with other behavioral disturbance; Z66 Do not resuscitate; N40.1 Benign prostatic hyperplasia with lower urinary tract symptoms; R33.8 Other retention of urine; I25.10 Atherosclerotic heart disease of native coronary artery without angina pectoris; I10 Essential (primary) hypertension; Z87.891 Personal history of nicotine dependence; Z79.899 Other long term (current) drug therapy
CPT/HCPCS: 36415; 80048; 85025; 87040; J1650; J2060; J2270; J2543

== ENCOUNTER → 2023-01-29 21:17 | Outpatient (BNV) | payer MEDICARE, SELFPAY | PROVIDERS: Admitting Provider Psychiatry & Neurology Psychiatry; Visit Provider Physician Assistant | DX: G93.41 Metabolic encephalopathy (principal); T17.908A Unspecified foreign body in respiratory tract, part unspecified causing other injury, initial encounter; F03.90 Unspecified dementia, unspecified severity, without behavioral disturbance, psychotic disturbance, mood disturbance, and anxiety | CPT/HCPCS: 99223; 99233; 99239 ==